=== PATIENT | female | born 1985 | race Caucasian/White ===

== ENCOUNTER 2017-10-15 21:05 | Emergency (ER) | payer OTHER ==
[2017-10-15] MEDS ORDERED: METOCLOPRAMIDE HCL INJECTION 10 MG/2 ML VIAL IVPB ONE (21:44)
[2017-10-15] MEDS ORDERED: SODIUM CHLORIDE 1,000 ML IV STA (21:44)
--- NOTE | 2017-10-15 21:44 | PDOC ---
History of Present Illness - General Stated Complaint: SYNCOPE Time Seen by Provider: 10/15/17 21:08 History Source: Patient Exam Limitations: No Limitations - History of Present Illness Initial Comments: 10/16/17 01:09 Best Contact: Pmhx: Asthma/never intubated or admitted, hypothyroid, migraine Pshx: Right thyroidectomy 2009; bilateral tubal ligation 2015 Allergies: Ketoprofen/rash, Cipro/rash 32-year-old female presents to the emergency department complaining of bitemporal 6/10 dull nonradiating intermittent migraine headache 2 days with photophobia/phonophobia but without fever, chills, nausea/vomiting, dizziness, lightheadedness, facial pains, rhinorrhea, nasal congestion, earaches, neck pain /stiffness, back pains, chest pain, shortness of breath, abdominal pains, flank pains, urinary symptoms, ext numbness or tingling sensation., Bladder or bowel dysfunction. Patient states her symptoms are very typical of her usual migraines. Patient states she did not take anything for her pain. Past History - Past Medical History Allergies/Adverse Reactions: Allergies Allergy/AdvReac Type Severity Reaction Status Date / Time ciprofloxacin [From Cipro] Allergy Verified 10/15/17 21:56 ibuprofen Allergy Verified 10/15/17 21:56 Review of Systems - Review of Systems Able to Perform ROS?: Yes Comments:: 10/16/17 01:11 CONSTITUTIONAL: Absent: fever, chills, diaphoresis, generalized weakness, malaise, loss of appetite HEENT: Absent: rhinorrhea, nasal congestion, throat pain, throat swelling, difficulty swallowing, mouth swelling, ear pain, eye pain, visual Changes CARDIOVASCULAR: Absent: chest pain, loss of consciousness, palpitations, irregular heart rate, peripheral edema RESPIRATORY: Absent: cough, shortness of breath, dyspnea with exertion, orthopnea, wheezing, stridor, hemoptysis GASTROINTESTINAL: Absent: abdominal pain, abdominal distension, nausea, vomiting, diarrhea, constipation, melena, hematochezia GENITOURINARY: Absent: dysuria, frequency, urgency, hesitancy, hematuria, flank pain, genital pain MUSCULOSKELETAL: Absent: myalgia, arthralgia, joint swelling SKIN: Absent: rash, itching, pallor HEMATOLOGIC/IMMUNOLOGIC: Absent: easy bleeding, easy bruising, lymphadenopathy, frequent infections ENDOCRINE: Absent: unexplained weight gain, unexplained weight loss, heat intolerance, cold intolerance NEUROLOGIC: +bi-temporal peace Absent: focal weakness or paresthesias, dizziness, unsteady gait, seizure, mental status changes, bladder or bowel incontinence PSYCHIATRIC: Absent: anxiety, depression, suicidal or homicidal ideation, hallucinations. Is the patient limited Syrian proficient: No *Physical Exam - Physical Exam Comments: 10/16/17 01:12 GENERAL: Well developed, well nourished. Awake and alert. No acute distress. HEENT: Normocephalic, atraumatic. PERRLA, EOMI. No conjunctival pallor. Sclera are non- icteric. Moist mucous membranes. Oropharynx is clear. NECK: Supple. Full ROM. No JVD. Carotid pulses 2+ and symmetric, without bruits. No thyromegaly. No lymphadenopathy. CARDIOVASCULAR: Regular rate and rhythm. No murmurs, rubs, or gallops. Distal pulses are 2+ and symmetric. PULMONARY: No evidence of respiratory distress. Lungs clear to auscultation bilaterally. No wheezing, rales or rhonchi. ABDOMINAL: Soft. Non-tender. Non-distended. No rebound or guarding. No organomegaly. Normoactive bowel sounds. MUSCULOSKELETAL Normal range of motion at all joints. No bony deformities or tenderness. No CVA tenderness. EXTREMITIES: No cyanosis. No clubbing. No edema. No calf tenderness. SKIN: Warm and dry. Normal capillary refill. No rashes. No jaundice. NEUROLOGICAL: Alert, awake, appropriate. Cranial nerves 2-12 intact. No deficits to light touch and temperature in face, upper extremities and lower extremities. No motor deficits in the in face, upper extremities and lower extremities. Normoreflexic in the upper and lower extremities. Normal speech. Toes are down- going bilaterally. Gait is normal without ataxia. PSYCHIATRIC: Cooperative. Good eye contact. Appropriate mood and affect. ED Treatment Course - LABORATORY CBC & Chemistry Diagram: 10/15/17 21:00 10/15/17 21:00 Progress Note - Progress Note Progress Note: 0042hrs: Patient's pain-free *DC/Admit/Observation/Transfer Diagnosis at time of Disposition: Migraine headache without aura Qualifiers: Status migrainosus presence: without status migrainosus Intractability: not intractable Qualified Code(s): G43.009 - Migraine without aura, not intractable , without status migrainosus - Discharge Dispostion Disposition: HOME Condition at time of disposition: Good Admit: No - Referrals Referrals: Eleni Valente MD [Primary Care Provider] - Gerardo Roberts MD [Staff Physician] - - Patient Instructions Printed Discharge Instructions: DI for Migraine Additional Instructions: Rest Tylenol alternating with Motrin as needed for pain Follow with the neurologist listed on your discharge Return back to the emergency department for severe/persistent or worsening symptoms - Post Discharge Activity
[2017-10-15 21:48] VITALS: BMI 29.6
[2017-10-15 22:01] LABS: BASO % 0.5 % (0-2.0); EOS % 2.5 % (0-4.5); HEMATOCRIT 39.7 % (32.4-45.2); HEMOGLOBIN 13.6 GM/dL (10.7-15.3); LYMPH % 37.8 % (8-40); MCH 31.2 pg (25.7-33.7); MCHC 34.3 g/dl (32.0-36.0); MEAN CELL VOLUME 90.8 fl (80-96); MEAN PLT VOLUME 7.7 fl (7.5-11.1); MONO % 10.5 % (3.8-10.2); NEUT % 48.7 % (42.8-82.8); PLATELET COUNT 268 K/MM3 (134-434); RBC 4.37 M/mm3 (3.60-5.2); RDW 12.4 % (11.6-15.6)
[2017-10-15] MEDS ORDERED: METOCLOPRAMIDE HCL INJECTION 10 MG/2 ML VIAL ONE (22:06)
--- NOTE | 2017-10-15 22:07 | PDOC ---
*Physical Exam - Vital Signs Last Vital Signs Temp Pulse Resp BP Pulse Ox 97.8 F 74 18 114/71 100 10/15/17 21:44 10/15/17 21:44 10/15/17 21:44 10/15/17 21:44 10/15/17 21:44 ED Treatment Course - LABORATORY CBC & Chemistry Diagram: 10/15/17 21:00 10/15/17 21:00 - ADDITIONAL ORDERS Additional order review: 10/15/17 21:00 RBC 4.37 MCV 90.8 MCHC 34.3 RDW 12.4 MPV 7.7 Neutrophils % 48.7 Lymphocytes % 37.8 Monocytes % 10.5 H Eosinophils % 2.5 Basophils % 0.5 Medical Decision Making - Medical Decision Making 10/15/17 22:07 Pt seen by the Advanced Practice Provider under my direct supervision Ancillary studies reviewed I agree with plan as outlined by the Advanced Practice Provider MINERVA Lainez *DC/Admit/Observation/Transfer - Discharge Dispostion Condition at time of disposition: Good - Referrals - Patient Instructions - Post Discharge Activity
[2017-10-15 22:28] LABS: ALBUMIN 3.6 g/dl (3.4-5.0); ANION GAP 6 (8-16); BILIRUBIN,TOTAL 0.5 mg/dL (0.2-1.0); BLOOD UREA NITROGEN 15 mg/dL (7-18); CALCIUM 8.6 mg/dL (8.5-10.1); CHLORIDE 106 mmol/L (98-107); CO2 27 mmol/L (21-32); CREATININE 0.5 mg/dL (0.55-1.02); GLUCOSE,RANDOM 104 mg/dL (74-106); POTASSIUM 4.1 mmol/L (3.5-5.1); SGOT/AST 28 U/L (15-37); SGPT/ALT 45 U/L (12-78); SODIUM 139 mmol/L (136-145); TOT PROT 7.3 g/dl (6.4-8.2)
[2017-10-15 22:29] LABS: ALK PHOS 94 U/L (45-117)
[2017-10-15] MEDS ORDERED: PROCHLORPERAZINE INJECTION 10 MG/2 ML VIAL IVPB ONE (23:31)
[2017-10-15] MEDS ORDERED: DEXAMETHASONE SOD PHOSPHATE 10 MG/1 ML VIAL IVPUSH ONE (23:44)
[2017-10-16] MEDS ORDERED: PROCHLORPERAZINE INJECTION 10 MG/2 ML VIAL ONE (00:03)
[2017-10-16] MEDS ORDERED: DEXAMETHASONE SOD PHOSPHATE 10 MG/1 ML VIAL ONE (00:03)
[2017-10-16 01:37] VITALS: BP 114/70; PULSE 82; TEMP 97.6
== END 2017-10-16 01:37 | disposition home or self-care (01) ==
LOC: JER 21:05
PROC: 3E0333Z Introduction of Anti-inflammatory into Peripheral Vein, Percutaneous Approach (ICD-10-PCS; principal; 2017-10-15)
PROC: 3E033GC Introduction of Other Therapeutic Substance into Peripheral Vein, Percutaneous Approach (ICD-10-PCS; 2017-10-15)
PROC: 3E033GC Introduction of Other Therapeutic Substance into Peripheral Vein, Percutaneous Approach (ICD-10-PCS; 2017-10-15)
DX: G43.009 Migraine without aura, not intractable, without status migrainosus (principal); E03.9 Hypothyroidism, unspecified; J45.909 Unspecified asthma, uncomplicated
CPT/HCPCS: 36415; 80053; 85025; 96374; 96375; 99281-25; J1100; J7030

== ENCOUNTER 2019-02-19 22:16 | Emergency (ER) | payer OTHER ==
[2019-02-19 22:26] VITALS: BP 122/82; PULSE 72; TEMP 98.2; BMI 34.5
[2019-02-19] MEDS ORDERED: SODIUM CHLORIDE 1,000 ML IV STA (23:21)
[2019-02-19] MEDS ORDERED: ACETAMINOPHEN 1000 MG/100 ML VIAL (NON FORMULARY) IVPB ONE (23:23)
[2019-02-19] MEDS ORDERED: morphine CARPU-JECT 2 MG/1 ML DISP.SYRIN IVPUSH ONE (23:28)
[2019-02-19] MEDS ORDERED: ACETAMINOPHEN INJECTION 100 ML IVPB ONE (23:29)
[2019-02-19] MEDS ORDERED: MORPHINE SULFATE 2 MG/ML VIAL ONE (23:30)
--- NOTE | 2019-02-20 00:02 | PDOC ---
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 Endorses episode of white, foul smelling discharge. Saw PCP last week who wrote an order for TVUS but patient did not have the time to get imaging. Presented today due to increased lower abd pain. Had b/l tubal ligation concurrent w/ 2ys prior in [place]. LMP was 5ys prior. States that her periods tend to be irregular. Engages in non-barrier intercourse with monogamous . Pain with pentration during intercourse. Has been taking methocarbomal and cyclobenzaprine for her chronic lower back spasms. Severity: severe Modifying Factors: improves with: other (slight improvement with methocarbamol) Associated Symptoms: reports: fever/chills, headaches, loss of appetite Past History - Travel Traveled outside of the country in the last 30 days: No Close contact w/someone who was outside of country & ill: No - Past Medical History Allergies/Adverse Reactions: Allergies Allergy/AdvReac Type Severity Reaction Status Date / Time ciprofloxacin [From Cipro] Allergy Verified 10/15/17 21:56 ibuprofen Allergy Verified 10/15/17 21:56 COPD: No CHF: No Thyroid Disease: Yes (hypothyroid) - Surgical History Other Surgical History: 02/20/19 00:03 csection x4 - Family Disease History Family Disease History: Other: Grandparents (prostate Ca), Father (DM), Mother ( pre-DM) - Reproductive History LMP comment: 5mo prior LMP Normal: No - Immunization History Immunization Up to Date: Yes - Suicide/Smoking/Psychosocial Hx Smoking History: Never smoked Have you smoked in the past 12 months: No Hx Alcohol Use: No Drug/Substance Use Hx: No Substance Use Type: None Hx Substance Use Treatment: No Review of Systems - Review of Systems Able to Perform ROS?: Yes Is the patient limited Yoruba proficient: Yes Constitutional: Yes: Chills, Loss of Appetite. No: Fever HEENTM: No: Blurred Vision, Double Vision Respiratory: No: Cough, Orthopnea Cardiac (ROS): Yes: Chest Pain (chest pressure) ABD/GI: Yes: Abdominal cramping (LLQ>RLQ). No: Nausea, Vomiting, Tarry Stools : Yes: Burning, Dysuria. No: Hematuria Musculoskeletal: Yes: Back Pain Integumentary: No: Erythema Neurological: Yes: Headache. No: Numbness Endocrine: No: Excessive Sweating Hematologic/Lymphatic: No: Anemia *Physical Exam - Vital Signs Last Vital Signs Temp Pulse Resp BP Pulse Ox 98.2 F 72 20 122/82 98 02/19/19 22:19 02/19/19 22:19 02/19/19 22:19 02/19/19 22:19 02/19/19 22:19 - Physical Exam General Appearance: Yes: Nourished, Appropriately Dressed, Moderate Distress. No: Cachetic HEENT: positive: EOMI, Normal Voice Neck: positive: Trachea midline. negative: Lymphadenopathy (R), Lymphadenopathy (L) Respiratory/Chest: positive: Lungs Clear. negative: Respiratory Distress, Accessory Muscle Use Cardiovascular: positive: Regular Rate, S1, S2. negative: Edema Female Pelvic Exam: positive: cervical os closed (no blood ), CMT, adnexal tenderness (LLQ pain) Musculoskeletal: negative: CVA Tenderness Extremity: positive: Normal Capillary Refill. negative: Tender, Calf Tenderness Integumentary: negative: Cyanotic Neurologic: positive: Fully Oriented, Normal Mood/Affect ED Treatment Course - Medications Given in the ED: ED Medications Discontinued Medications Generic Name Dose Route Start Last Admin Trade Name Moisesq PRN Reason Stop Dose Admin Acetaminophen 1,000 mg 02/19/19 23:23 02/19/19 23:54 Ofirmev Injection - IVPB 02/19/19 23:24 1,000 mg ONCE ONE Administration Morphine Sulfate 2 mg 02/19/19 23:28 02/19/19 23:54 Morphine Injection - IVPUSH 02/19/19 23:29 2 mg ONCE ONE Administration Medical Decision Making - Medical Decision Making 02/20/19 00:06 Lower abd pain possibly 2/2 to PID, ovarian cyst, less likely ovarian torsion( 5d pain) - fu CBC, CMP, UA - fu G&C urine, HIV - morphine + ofirmev for pain PRN - fu TVUS
[2019-02-20 00:10] LABS: BASO % 0.4 % (0-2.0); EOS % 2.3 % (0-4.5); HEMATOCRIT 41.9 % (32.4-45.2); HEMOGLOBIN 14.3 GM/dL (10.7-15.3); LYMPH % 44.3 % (8-40); MCH 31.2 pg (25.7-33.7); MCHC 34.1 g/dl (32.0-36.0); MEAN CELL VOLUME 91.5 fl (80-96); MEAN PLT VOLUME 8.1 fl (7.5-11.1); MONO % 8.3 % (3.8-10.2); NEUT % 44.7 % (42.8-82.8); PLATELET COUNT 271 K/MM3 (134-434); RBC 4.58 M/mm3 (3.60-5.2); RDW 13.2 % (11.6-15.6); WHITE BLOOD COUNT 5.9 K/mm3 (4.0-10.0)
--- NOTE | 2019-02-20 00:15 | PDOC ---
*Physical Exam - Vital Signs Last Vital Signs Temp Pulse Resp BP Pulse Ox 98.2 F 72 20 122/82 98 02/19/19 22:19 02/19/19 22:19 02/19/19 22:19 02/19/19 22:19 02/19/19 22:19 <Amna Patrick - Last Filed: 02/20/19 01:25> - Vital Signs Last Vital Signs Temp Pulse Resp BP Pulse Ox 98.2 F 72 20 122/82 98 02/19/19 22:19 02/19/19 22:19 02/19/19 22:19 02/19/19 22:19 02/19/19 22:19 <CherryJuan RamonWilmer Suekhushi - Last Filed: 02/20/19 02:17> ED Treatment Course - LABORATORY CBC & Chemistry Diagram: 02/19/19 23:50 02/19/19 23:50 - ADDITIONAL ORDERS Additional order review: Laboratory Results 02/20/19 02/20/19 02/19/19 00:20 00:20 23:50 Sodium Potassium Chloride Carbon Dioxide Anion Gap BUN Creatinine Est GFR (CKD-EPI)AfAm Est GFR (CKD-EPI)NonAf Random Glucose Calcium Total Bilirubin AST ALT Alkaline Phosphatase Total Protein Albumin TSH 2.98 Urine Color Yellow Urine Appearance Clear Urine pH 6.5 Ur Specific [place] 1.022 Urine Protein Negative Urine Glucose (UA) Negative Urine Ketones Negative Urine Blood Negative Urine Nitrite Negative Urine Bilirubin Negative Urine Urobilinogen 1.0 Ur Leukocyte Esterase Negative Urine HCG, Qual Negative 02/19/19 23:50 Sodium 140 Potassium 4.0 Chloride 107 Carbon Dioxide 25 Anion Gap 8 BUN 8.9 Creatinine 0.8 Est GFR (CKD-EPI)AfAm 113.06 Est GFR (CKD-EPI)NonAf 97.55 Random Glucose 90 Calcium 8.7 Total Bilirubin 0.8 AST 64 H ALT 124 H Alkaline Phosphatase 103 Total Protein 8.2 Albumin 4.1 TSH Urine Color Urine Appearance Urine pH Ur Specific [place] Urine Protein Urine Glucose (UA) Urine Ketones Urine Blood Urine Nitrite Urine Bilirubin Urine Urobilinogen Ur Leukocyte Esterase Urine HCG, Qual 02/19/19 23:50 RBC 4.58 MCV 91.5 MCHC 34.1 RDW 13.2 MPV 8.1 Neutrophils % 44.7 Lymphocytes % 44.3 H Monocytes % 8.3 Eosinophils % 2.3 Basophils % 0.4 - Medications Given in the ED: ED Medications Discontinued Medications Generic Name Dose Route Start Last Admin Trade Name Freq PRN Reason Stop Dose Admin Acetaminophen 1,000 mg 02/19/19 23:23 02/19/19 23:54 Ofirmev Injection - IVPB 02/19/19 23:24 1,000 mg ONCE ONE Administration Sodium Chloride 1,000 mls @ 1,000 mls/hr 02/19/19 23:21 02/19/19 23:54 Normal Saline - IV 02/20/19 00:20 1,000 mls/hr ASDIR STA Administration Morphine Sulfate 2 mg 02/19/19 23:28 02/19/19 23:54 Morphine Injection - IVPUSH 02/19/19 23:29 2 mg ONCE ONE Administration <Amna Patrick - Last Filed: 02/20/19 01:25> - LABORATORY CBC & Chemistry Diagram: 02/19/19 23:50 02/19/19 23:50 - ADDITIONAL ORDERS Additional order review: 02/19/19 23:50 RBC 4.58 MCV 91.5 MCHC 34.1 RDW 13.2 MPV 8.1 Neutrophils % 44.7 Lymphocytes % 44.3 H Monocytes % 8.3 Eosinophils % 2.3 Basophils % 0.4 - Medications Given in the ED: ED Medications Discontinued Medications Generic Name Dose Route Start Last Admin Trade Name Freq PRN Reason Stop Dose Admin Acetaminophen 1,000 mg 02/19/19 23:23 02/19/19 23:54 Ofirmev Injection - IVPB 02/19/19 23:24 1,000 mg ONCE ONE Administration Morphine Sulfate 2 mg 02/19/19 23:28 02/19/19 23:54 Morphine Injection - IVPUSH 02/19/19 23:29 2 mg ONCE ONE Administration <Yelitza Can - Last Filed: 02/20/19 02:17> Medical Decision Making - Medical Decision Making 02/20/19 00:[address] Jasso 34 y/o F presenting to the ED with lower abdominal pain for 6 days. on pelvic exam: cervical motion tenderness, left adnexal tenderness. no blood in vaginal vault and no discharge Rule out PID vs ovarian torsion Labs/Imaging cbc, cmp ua, G/C, TVUS, HIV -Given Tylenol and Morphine for pain -HIV negative -G/C Pending -Given 1g of azithromycin and 250 mg of ceftriaxone IM -D/C with follow up to gynecology and GI 02/20/19 02:05 TVUS Findings: No fibroids. Normal arterial and venous flow to right and left ovaries. No significant free fluid. 02/20/19 02:16 <Yelitza Can - Last Filed: 02/20/19 02:17> *DC/Admit/Observation/Transfer - Discharge Dispostion Decision to Admit order: No <Amna Patrick - Last Filed: 02/20/19 01:25> <Yelitza Can - Last Filed: 02/20/19 02:17> Diagnosis at time of Disposition: Sciatica, Elevated LFTs - Discharge Dispostion Disposition: HOME Condition at time of disposition: Improved - Referrals Referrals: Eliud Redmond MD [Staff Physician] - Paddy Gonzalez MD [Staff Physician] - - Patient Instructions Printed Discharge Instructions: DI for Sciatica, DI for Pelvic Pain, Liver Function Tests
[2019-02-20 00:29] LABS: ALBUMIN 4.1 g/dl (3.4-5.0); BILIRUBIN,TOTAL 0.8 mg/dL (0.2-1); BLOOD UREA NITROGEN 8.9 mg/dL (7-18); CALCIUM 8.7 mg/dL (8.5-10.1); CREATININE 0.8 mg/dL (0.55-1.3); TOT PROT 8.2 g/dl (6.4-8.2)
[2019-02-20 00:41] LABS: PH,URINE 6.5 (5.0-8.0); URINE APPEARANCE CLEAR; URINE BILIRUBIN NEGATIVE (NEGATIVE); URINE COLOR YELLOW; URINE GLUCOSE (UA) NEGATIVE (NEGATIVE); URINE KETONE NEGATIVE (NEGATIVE); URINE LEUK ESTERASE NEGATIVE (NEGATIVE); URINE NITRITE NEGATIVE (NEGATIVE); URINE PROTEIN NEGATIVE (NEGATIVE)
--- NOTE | 2019-02-20 01:25 | PDOC ---
Documentation entered by Matt Ferrari SCRIBE, acting as scribe for Amna Patrick MD. Amna Patrick MD: This documentation has been prepared by the Vega russell Daniel, SCRIBE, under my direction and personally reviewed by me in its entirety. I confirm that the documentation accurately reflects all work, treatment, procedures, and medical decision making performed by me. Attending Attestation - Resident Resident Name: RomeroGabino - ED Attending Attestation I have performed the following: I have examined & evaluated the patient, The case was reviewed & discussed with the resident, I agree w/resident's findings & plan - HPI HPI: 02/19/19 23:23 The patient is a 34 year old female with a past medical history of bilateral tubal ligation, hypothyroidism, PID, and asthma here today for evaluation of bilateral lower quadrant abdominal pain. The patient reports that she has had 6 days of lower quadrant abdominal pain (left worse than right) that radiates to her flanks. She also notes decreased PO intake. She also reports spinal pain that radiates down her right leg and some pinkish vaginal discharge. Patient notes that her periods are usually irregular but that she hasn't had a period in 5 months. Patient denies headache, lightheadedness. Denies fever, chills. Denies chest pain, shortness of breath. Denies nausea, vomiting, diarrhea. Allergies: ciprofloxacin, ibuprofen LMP: 10/04 - Physicial Exam PE: 02/19/19 23:55 GENERAL: Awake, alert, and fully oriented, in no acute distress HEAD: No signs of trauma EYES: PERRLA, EOMI, sclera anicteric, conjunctiva clear ENT: Auricles normal inspection, hearing grossly normal, nares patent, oropharynx clear without exudates. Moist mucosa NECK: Normal ROM, supple, no lymphadenopathy, JVD, or masses LUNGS: Breath sounds equal, clear to auscultation bilaterally. No wheezes, and no crackles HEART: Regular rate and rhythm, normal S1 and S2, no murmurs, rubs or gallops ABDOMEN: Soft, nontender, normoactive bowel sounds. No guarding, no rebound. No masses EXTREMITIES: Normal range of motion, no edema. No clubbing or cyanosis. No cords, erythema, or tenderness NEUROLOGICAL: Cranial nerves II through XII grossly intact. Normal speech, normal gait SKIN: Warm, Dry, normal turgor, no rashes or lesions noted. - Medical Decision Making 02/20/19 00:10 Pt has 2 types of pain; right sided sciatic pain and left adnexal pain - ongoing since Wednesday and she comes today because her was free and she was able to come in today. She has white discharge, but no vag bleeding. Pt has taken flexeril and robaxin with no relief. 02/20/19 00:17 WBC is normal/CBC normal. CHem and UA pending 02/20/19 01:24 Patient Name: CHELSI CALDERA THIS IS A PRELIMINARY REPORT FROM [facility] DATE OF SERVICE: 2019-02-20 00:18:53 IMAGES: 25 EXAM: TRANSVAGINAL ULTRASOUND US and pelvic duplex HISTORY: Left adnexal tenderness COMPARISON: None. FINDINGS: Endovaginal pelvic ultrasound:Uterus is anteverted and measures 9.0centimeters in length. The endometrium is 9millimeters in thickness which is normal. There are no fibroids. The right ovary measures 3.3centimeters in length, appears normal and demonstrates normal flow. Left ovary measures 3.6centimeters in length appears normal demonstrates normal flow. There is no significant free fluid. Pelvic duplex: There is normal arterial and venous flow in both ovaries. IMPRESSION: Normal exam 02/20/19 01:25 Pt will be treated empirically for GC, as she had CMT on exam. Home with GI follow up
[2019-02-20] MEDS ORDERED: AZITHROMYCIN 500 MG TABLET PO ONE (01:30)
[2019-02-20] MEDS ORDERED: AZITHROMYCIN 250 MG TABLET ONE (02:32)
== END 2019-02-20 02:43 | disposition home or self-care (01) ==
LOC: JER 22:16
PROC: 3E02329 Introduction of Other Anti-infective into Muscle, Percutaneous Approach (ICD-10-PCS; principal; 2019-02-19)
PROC: 3E0337Z Introduction of Electrolytic and Water Balance Substance into Peripheral Vein, Percutaneous Approach (ICD-10-PCS; 2019-02-19)
PROC: 3E033NZ Introduction of Analgesics, Hypnotics, Sedatives into Peripheral Vein, Percutaneous Approach (ICD-10-PCS; 2019-02-19)
PROC: 3E033NZ Introduction of Analgesics, Hypnotics, Sedatives into Peripheral Vein, Percutaneous Approach (ICD-10-PCS; 2019-02-19)
DX: M54.30 Sciatica, unspecified side (principal); R94.5 Abnormal results of liver function studies; R10.2 Pelvic and perineal pain; N88.8 Other specified noninflammatory disorders of cervix uteri
CPT/HCPCS: 36415; 76830-TC; 80053; 81003; 84443; 84703; 85025; 87086; 87389; 87491; 87591; 96361; 96372; 96374; 96375; 99283-25; J0131; J7030

== ENCOUNTER 2019-09-23 05:46 | Emergency (ER) | payer OTHER ==
[2019-09-23] MEDS ORDERED: ONDANSETRON 4 MG/2 ML VIAL ONE (06:19)
[2019-09-23 06:36] VITALS: TEMP 97.9; BMI 30.9
[2019-09-23] MEDS ORDERED: ACETAMINOPHEN 1000 MG/100 ML VIAL (NON FORMULARY) IVPB ONE (06:37)
[2019-09-23] MEDS ORDERED: ACETAMINOPHEN INJECTION 100 ML IVPB ONE (06:39)
[2019-09-23] MEDS ORDERED: SODIUM CHLORIDE 0.9% 500 ML INFUS.BAG IV ONE (07:54)
[2019-09-23] MEDS ORDERED: METOCLOPRAMIDE HCL INJECTION 10 MG/2 ML VIAL IVPB ONE (07:54)
[2019-09-23] MEDS ORDERED: METOCLOPRAMIDE HCL INJECTION 10 MG/2 ML VIAL ONE (08:04)
--- NOTE | 2019-09-23 08:17 | PDOC ---
History of Present Illness - General Chief Complaint: Headache Stated Complaint: HEADACHE/DIZZINESS Time Seen by Provider: 09/23/19 07:33 History Source: Patient Exam Limitations: No Limitations - History of Present Illness Initial Comments: 09/23/19 08:08 HPI: 34yo F PMH hypothyroidsm, asthma, migraine, presenting s/p headache and subsequent chemical exposure and syncope at 3AM. Patient endorses having a headache shortly after midnight consistent with an early migraine, she took 2 Excedrin and proceeded to work. At work, a coworker cleaned a poorly ventilated room with Clorox, Lysol and [employer]ul[place] the fumes of which the patient reports made her feel "intoxicated" and worsened her headache. She subsequently syncopized, remembers hearing distant voices before passing out (no head injury per coworker at bedside), and recovered with continued headache. Headache is holocranial, pressure, gradual onset with rapid worsening s/p fumes, Tylenol did not help. She has associated nausea, several episodes of small volume NBNB emesis, photophobia and says her vision "feels tired." No history of PCKD, aneurysm, no FHx aneurysms. All: Cipro, ibuprofen Meds: Per chart PMH: As above PSH: 4 C-sections, Thyroid resection Past History - Past Medical History Allergies/Adverse Reactions: Allergies Allergy/AdvReac Type Severity Reaction Status Date / Time ciprofloxacin [From Cipro] Allergy Verified 09/23/19 05:57 ibuprofen Allergy Verified 09/23/19 05:57 Asthma: Yes COPD: No CHF: No Thyroid Disease: Yes (hypothyroid) Other medical history: Migraines - Reproductive History (#): 4 Para: 4 Therapeutic (s) & number: Yes Tubal Ligation: Yes (APPROX. 3 YEARS AGO) Spontaneous : 0 - Immunization History Immunization Up to Date: Yes - Psycho Social/Smoking Cessation Hx Smoking History: Never smoked Have you smoked in the past 12 months: No Information on smoking cessation initiated: No Hx Alcohol Use: No Drug/Substance Use Hx: No Substance Use Type: None Hx Substance Use Treatment: No Review of Systems - Review of Systems Able to Perform ROS?: Yes Is the patient limited Sinhala proficient: No Constitutional: No: Chills, Diaphoresis, Fever, Weakness HEENTM: Yes: Blurred Vision. No: Eye Pain, Nose Pain, Nose Congestion, Hearing Loss Respiratory: No: Cough, Shortness of Breath, Wheezing Cardiac (ROS): Yes: Syncope. No: Chest Pain, Edema, Irregular Heart Rate, Palpitations, Chest Tightness ABD/GI: Yes: Nausea, Vomiting. No: Constipated, Diarrhea : No: Burning, Dysuria, Discharge, Frequency Musculoskeletal: No: Muscle Pain, Muscle Weakness Integumentary: No: Pruritus, Rash Neurological: Yes: See HPI, Headache. No: Numbness, Tingling, Tremors, Wea kness, Unsteady Gait Endocrine: No: Increased Thirst, Increased Urine Hematologic/Lymphatic: No: Anemia, Blood Clots, Easy Bleeding All Other Systems: Reviewed and Negative *Physical Exam - Vital Signs Last Vital Signs Temp Pulse Resp BP Pulse Ox 97.9 F 66 20 123/93 100 09/23/19 05:57 09/23/19 05:57 09/23/19 05:57 09/23/19 05:57 09/23/19 05:57 - Physical Exam 09/23/19 08:33 Vitals reviewed, AFVSS GEN: Appears stated age, NAD, uncomfortable with light. AAOx3. HEENT: NCAT, EOMI, PERRL. Sclera anicteric, non-injected. No facial asymmetry. Moist mucous membranes. Normal voice. Trachea midline. Neck supple. No stiffness or pain with flexion. CV: RRR, S1/S2, no murmurs / rubs / gallops appreciated. LUNG: CTAB, normal work of breathing. No wheezes, rales, rhonchi. No cough. Speaking full sentences. GI: Soft, NTND, +BS, no guarding, no rebound. No masses. Neg CVAT b/l. EXTREMITIES: 2+ distal pulses. No LE edema. No obvious deformities of all extre mities. SKIN: Warm, dry, no rashes appreciated, non-jaundiced. PSYCH: Normal mood and affect. Cooperative and appropriate. NEURO: CN 2-12 intact. Moving all extremities well. Normal strength and sensation to light touch. ED Treatment Course - LABORATORY CBC & Chemistry Diagram: 09/23/19 08:10 09/23/19 08:10 - Medications Given in the ED: ED Medications Discontinued Medications Generic Name Dose Route Start Last Admin Trade Name Freq PRN Reason Stop Dose Admin Acetaminophen 1,000 mg 09/23/19 06:37 09/23/19 06:45 Ofirmev Injection - IVPB 09/23/19 06:38 1,000 mg ONCE ONE Administration Medical Decision Making - Medical Decision Making 09/23/19 08:28 34yo F PMH hypothyroidsm, asthma, migraine, presenting s/p headache and subsequent chemical exposure and syncope at 3AM. History notable for headache gradual onset prior to fume exposure, no recent illness or sick contacts. Exam notable for: No ocular findings, no trauma, normal vitals without fever, no neck stiffness, no palpitations or chest pain, non-focal neuro exam. DDX: Migraine, ICH, less likely mass lesion, thromboembolism. - CBC, CMP, Cardiac profile, Coags, UPreg - CXR, EKG, NCHCT 09/23/19 10:06 - AST and ALT elevated, c/w prior visit - CBC, Cardiac, CMP, Coags, otherwise wnl - CXR within normal limits - EKG with rate 56, NSR, normal axis, QTc 457, normal morphologies 09/23/19 11:12 - NCHCT without ICH or thromboembolic findings - Patient reports considerable improvement after medication and a nap Dispo: Home Discharge - Discharge Information Problems reviewed: Yes Clinical Impression/Diagnosis: Migraine headache without aura Qualifiers: Status migrainosus presence: without status migrainosus Intractability: not intractable Qualified Code(s): G43.009 - Migraine without aura, not intractable, without status migrainosus Condition: Improved Disposition: HOME - Admission No - Follow up/Referral Referrals: [facility] [place] [facility] [place] [Provider Group] - Patient Discharge Instructions Patient Printed Discharge Instructions: DI for Migraine Additional Instructions: You were seen and evaluated for headache, you were diagnosed with a migraine headache, emergent causes were ruled out. Continue your home medication as prescribed. Follow up with your primary care doctor in the next 1-3 days. Return to the for any new or concerning symptoms. Te vieron y te evaluaron para el dolor de rubio, te diagnosticaron dolor de rubio por migraa, se descartaron causas emergentes. Contine con tatum medicamento casero segn lo prescrito. [place] un seguimiento con tatum mdico de atencin primaria en los prximos 1-3 jain. Vuelva a la para cualquier sntoma nuevo o preocupante. Print Language: MACEDONIAN - Post Discharge Activity
[2019-09-23 08:25] LABS: BASO % 0.4 % (0-2.0); EOS % 1.8 % (0-4.5); HEMATOCRIT 39.2 % (32.4-45.2); HEMOGLOBIN 13.6 GM/dL (10.7-15.3); LYMPH % 37.8 % (8-40); MCH 31.8 pg (25.7-33.7); MCHC 34.8 g/dl (32.0-36.0); MEAN CELL VOLUME 91.5 fl (80-96); MEAN PLT VOLUME 7.8 fl (7.5-11.1); MONO % 7.3 % (3.8-10.2); NEUT % 52.7 % (42.8-82.8); PLATELET COUNT 276 K/MM3 (134-434); RBC 4.28 M/mm3 (3.60-5.2); RDW 12.9 % (11.6-15.6); WHITE BLOOD COUNT 6.1 K/mm3 (4.0-10.0)
[2019-09-23 08:37] LABS: INR 0.97 (0.83-1.09); PROTHROMBIN TIME (PATIENT) 11.4 SEC (9.7-13.0)
[2019-09-23 08:44] LABS: ALBUMIN 3.9 g/dl (3.4-5.0); ALK PHOS 107 U/L (45-117); ANION GAP 6 MMOL/L (8-16); BILIRUBIN,TOTAL 0.6 mg/dL (0.2-1); BLOOD UREA NITROGEN 10.3 mg/dL (7-18); CALCIUM 8.1 mg/dL (8.5-10.1); CHLORIDE 106 mmol/L (98-107); CO2 25 mmol/L (21-32); CREATININE 0.7 mg/dL (0.55-1.3); GLUCOSE,RANDOM 97 mg/dL (74-106); POTASSIUM 4.6 mmol/L (3.5-5.1); SGOT/AST 78 U/L (15-37); SGPT/ALT 157 U/L (13-61); SODIUM 137 mmol/L (136-145); TOT PROT 7.6 g/dl (6.4-8.2)
--- NOTE | 2019-09-23 09:14 | PDOC ---
Attending Attestation - Resident Resident Name: Lino Chun - ED Attending Attestation I have performed the following: I have examined & evaluated the patient, The case was reviewed & discussed with the resident, I agree w/resident's findings & plan, Exceptions are as noted - HPI HPI: 09/23/19 09:11 34-year-old female with history of asthma, hypothyroidism, migraine headaches presents to the ER after a syncopal episode preceded by a mild migraine-like headache consistent with previous episodes of migraines. However patient endorses that headache post syncope is quite different than her baseline migraine headaches. Patient endorses that she was exposed to chemicals at work prior to the syncopal episode. - Physicial Exam PE: 09/23/19 09:12 EXAMINATION CONSTITUTIONAL: Well-appearing; well-nourished; in no apparent distress HEAD: Normocephalic; atraumatic EYES: PERRL; EOM intact ENMT: External appears normal; normal oropharynx NECK: Supple; non-tender; no cervical lymphadenopathy CARD: Normal S1, S2; no murmurs, rubs, or gallops RESP: Normal chest excursion with respiration; breath sounds clear and equal bilaterally; no wheezes, rhonchi, or rales ABD: Soft, non-distended; non-tender; no palpable organomegaly, no palpable hernias EXT: Normal ROM in all four extremities; non-tender to palpation; distal pulses intact SKIN: Warm, dry, no rash NEURO: Cranial nerves II through XII are grossly intact; motor is five 5 x 4; no pronation drift; gait is stable - Medical Decision Making 09/23/19 09:13 34-year-old female presents to the ER post syncopal episode with an onset of new more severe-like headache. Patient is nonfocal neurologically with stable vital signs. Differential diagnosis includes subarachnoid versus intracerebral hemorrhage versus migraine headache versus vasovagal syncope. Will obtain CT of head; EKG reveals no evidence of acute dysrhythmia or ischemia. Will administer IV Tylenol and Reglan for treatment of headache. Will reassess.
[2019-09-23 10:35] VITALS: BP 102/56; PULSE 60
--- NOTE | 2019-09-24 09:53 | EKG ---
Test Reason : Blood Pressure : / mmHG Vent. Rate : 056 BPM Atrial Rate : 056 BPM P-R Int : 144 ms QRS Dur : 080 ms QT Int : 474 ms P-R-T Axes : 036 -01 017 degrees QTc Int : 457 ms SINUS BRADYCARDIA OTHERWISE NORMAL ECG NO PREVIOUS ECGS AVAILABLE Confirmed by Pj Sanz MD ([id number]) on 09/24/2019 9:52:43 AM Referred By: Confirmed By:Pj Sanz MD
== END 2019-09-23 11:22 | disposition home or self-care (01) ==
LOC: JER 05:46
PROC: 3E033NZ Introduction of Analgesics, Hypnotics, Sedatives into Peripheral Vein, Percutaneous Approach (ICD-10-PCS; principal; 2019-09-23)
PROC: 3E033GC Introduction of Other Therapeutic Substance into Peripheral Vein, Percutaneous Approach (ICD-10-PCS; 2019-09-23)
PROC: 3E033GC Introduction of Other Therapeutic Substance into Peripheral Vein, Percutaneous Approach (ICD-10-PCS; 2019-09-23)
DX: G43.909 Migraine, unspecified, not intractable, without status migrainosus (principal); R55 Syncope and collapse; R42 Dizziness and giddiness; T65.891A Toxic effect of other specified substances, accidental (unintentional), initial encounter; Y92.89 Other specified places as the place of occurrence of the external cause; Z88.1 Allergy status to other antibiotic agents; Z88.6 Allergy status to analgesic agent
CPT/HCPCS: 36415; 70450-TC; 71046-TC-FY; 80053; 82550; 82553; 84484; 84703; 85025; 85610; 93005; 93010; 99285-25; J0131

== ENCOUNTER 2020-02-14 22:18 | Observation (INO) | payer OTHER ==
[2020-02-14] MEDS ORDERED: SODIUM CHLORIDE 1,000 ML IV SCH (23:00)
[2020-02-14] MEDS ORDERED: ACETAMINOPHEN 1000 MG/100 ML VIAL (NON FORMULARY) IVPB ONE (23:05)
[2020-02-14] MEDS ORDERED: METOCLOPRAMIDE HCL INJECTION 10 MG/2 ML VIAL IVPUSH ONE (23:05)
[2020-02-14] MEDS ORDERED: ACETAMINOPHEN INJECTION 100 ML IVPB ONE (23:11)
[2020-02-14] MEDS ORDERED: METOCLOPRAMIDE HCL INJECTION 10 MG/2 ML VIAL ONE (23:11)
--- NOTE | 2020-02-14 23:48 | PDOC ---
History of Present Illness - General Chief Complaint: Pain Stated Complaint: pain Time Seen by Provider: 02/14/20 22:35 History Source: Patient Exam Limitations: No Limitations - History of Present Illness Initial Comments: 02/14/20 23:45 Faina Crowder is a Ugandan-speaking, obese 35F with PMH migraines presenting with CALLAWAY and R-sided facial and body numbness/weakness. Patient was otherwise feeling well earlier today. Was arguing with her daughter at ~5:30PM today when she suddenly had a sharp, R>L headache and facial droop and numbness/weakness on the right side of her body. Has history of migraines but never this bad, and never with numbness/weakness. 2 days prior felt dizzy and fell to the ground, hit her head on the floor, denies LOC or prodromal sx, returned to normal health and asymptomatic in the intervening time to today. No significant PMH other than obesity and migraines. No medications taken. Denies any chest pain, SOB, dental issues, fever, chills, N/V, cough, abd pain, urinary sx, diarrhea. No remarkable FH, no sick contacts at home, no recent URI. Presented to [facility] ED at 22:30 today for CALLAWAY pain control. Allergy to cipro. No PSH. No meds taken. Denies alcohol/drugs/tobacco. tPA Exclusion checklist 3-4.5h - Time Elapsed Date last known well: 02/14/20 Time last known well: 17:30 Elaspsed time: 1 Day(s) and 5 Hour(s) and 53 Minutes - Thrombolytic Therapy Candidate Is patient eligible for thrombolytic therapy: No - Ineligibility reason(s) Reasons No tPA given: Outside of window - delayed arrival NIH Stroke Scale - Last Known Well Date/Time & Onset Date Last Known Well: 02/14/20 Time Last Known Well: 17:30 - Initial Evaluation Level of consciousness: Alert Ask patient the month and their age: Answers both correctly Ask patient to open & close eyes; make fist and let go: Obeys both correctly Best gaze (horizontal eye movement): Normal Visual field testing: No visual field loss Facial paresis (Show teeth/raise eyebrows/close eyes tight): Partial paralysis (total or near paralysis of lower face) Motor Function: Left Arm: Normal Motor Function: Right Arm: Normal (extends arm 90 (or 45) degrees for 10 seconds without drift Motor Function: Left Leg: Normal (extends leg 30 degrees for 5 seconds without drift) Motor Function: Right Leg: Normal (extends leg 30 degrees for 5 seconds without drift) Limb Ataxia: No ataxia Sensory(Use pinprick test arms,legs,trunk,face/side to side): Mild to moderate decrease in sensation Best language (Describe picture, name items, read sentences): No Aphasia Dysarthria (read several words): Normal articulation Extinction and Inattention: No abnormality - Total Score NIH Stroke Scale Score: 3 Past History - Medical History Allergies/Adverse Reactions: Allergies Allergy/AdvReac Type Severity Reaction Status Date / Time ciprofloxacin [From Cipro] Allergy Verified 02/14/20 22:44 ibuprofen Allergy Verified 02/14/20 22:44 Home Medications: Ambulatory Orders Levothyroxine [Synthroid -] 75 mcg PO DAILY 02/15/20 Asthma: Yes COPD: No CHF: No Thyroid Disease: Yes (hypothyroid) - Reproductive History (#): 4 Para: 4 Therapeutic (s) & number: Yes Tubal Ligation: Yes (APPROX. 3 YEARS AGO) Spontaneous : 0 - Immunization History Immunization Up to Date: Yes - Psycho-Social/Smoking History Smoking History: Never smoked Have you smoked in the past 12 months: No Information on smoking cessation initiated: No - Substance Abuse Hx (Audit-C & DAST Scrn) How often the patient has a drink containing alcohol: Never Score: In Men: 4 or > Positive; In Women: 3 or > Positive: 0 Screen Result (Pos requires Nsg. Audit-10AR): Negative In the last yr the pt used illegal drug/Rx for NonMed reason: No Score: Yes response is considered Positive: 0 Screen Result (Positive result requires Nsg. DAST-10): Negative Review of Systems - Review of Systems Able to Perform ROS?: Yes Constitutional: Yes: Weakness HEENTM: Yes: Recent change in vision. No: Eye Pain, Blurred Vision, Double Vision, Throat Pain, Mouth Pain, Dental Problems, Mouth Swelling Respiratory: No: Cough, Shortness of Breath, Wheezing, Productive cough Cardiac (ROS): Yes: Lightheadedness. No: Chest Pain, Edema, Irregular Heart Rate, Syncope, Chest Tightness ABD/GI: No: Constipated, Diarrhea, Nausea, Poor Appetite, Poor Fluid Intake, Vomiting : No: Symptoms Reported Musculoskeletal: Yes: Muscle Weakness. No: Back Pain, Neck Pain Integumentary: No: Symptoms Reported Neurological: Yes: Headache, Weakness Endocrine: No: Symptoms Reported Hematologic/Lymphatic: No: Symptoms Reported All Other Systems: Reviewed and Negative *Physical Exam - Vital Signs Last Vital Signs Temp Pulse Resp BP Pulse Ox 98.1 F 71 20 127/78 98 02/14/20 22:42 02/14/20 22:42 02/14/20 22:42 02/14/20 22:42 02/14/20 22:42 - Physical Exam General Appearance: Yes: Nourished, Appropriately Dressed, Apparent Distress, Moderate Distress, Obese, Other (appears to be in pain, clutching head) HEENT: positive: EOMI, ARIANNA, Normal Voice, Hearing Grossly Normal. negative: Normal ENT Inspection, Symmetrical (inability to move the R nasolabial fold and lip lateral commissure), Pharynx Normal (no evidence of erythema or dental issues, paralysis of the R mouth), Scleral Icterus (R), Scleral Icterus (L), Muffled/Hoarse voice, Pharyngeal Erythema, Tonsillar Exudate, Tonsillar Erythema Neck: positive: Trachea midline, Normal Thyroid, Supple. negative: Tender, Rigid, Decreased range of motion, Lymphadenopathy (R), Lymphadenopathy (L), Tender lateral, Tender midline Respiratory/Chest: positive: Lungs Clear, Normal Breath Sounds. negative: Chest Tender, Respiratory Distress, Accessory Muscle Use, Crackles, Rales, Rhonchi, Stridor, Wheezing Cardiovascular: positive: Regular Rhythm, Regular Rate Gastrointestinal/Abdominal: positive: Normal Bowel Sounds, Flat, Soft. negative: Tender, Organomegaly, Pulsatile Mass, Distended, Guarding, Hernia Musculoskeletal: positive: Normal Inspection, Decreased Range of Motion. negati ve: CVA Tenderness, CVA Tenderness (R), CVA Tenderness (L) Extremity: positive: Normal Capillary Refill, Normal Inspection, Normal Range of Motion, Pelvis Stable. negative: Tender, Pedal Edema, Swelling, Calf Tenderness Integumentary: positive: Normal Color, Dry, Warm Neurologic: positive: Fully Oriented, Alert, Normal Mood/Affect, Normal Response, Facial Droop (R side, forehead sparing), Numbness (R-sided face and RUE decreased sensation compared to L side), Sensory Deficit, Finger to Nose (normal). 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 NML intact (CN 7), Motor Strength 5/5 (R-sided global weakness 4/5 to upper and lower extremities) ED Treatment Course - LABORATORY CBC & Chemistry Diagram: 02/15/20 05:49 02/15/20 05:49 - Medications Given in the ED: ED Medications Discontinued Medications Generic Name Dose Route Start Last Admin Trade Name Harpal PRN Reason Stop Dose Admin Acetaminophen 1,000 mg 02/14/20 23:05 02/14/20 23:35 Ofirmev Injection - IVPB 02/14/20 23:06 1,000 mg ONCE ONE Administration Metoclopramide HCl 10 mg 02/14/20 23:05 02/14/20 23:35 Reglan Injection - IVPUSH 02/14/20 23:06 10 mg ONCE ONE Administration Medical Decision Making - Medical Decision Making 02/15/20 01:33 Patient has PMH obesity and migraines here for CALLAWAY with numbness/weakness in R side of body. Notable R-sided weakness and forehead-sparing facial droop to R mouth concerning for CVA, Code [place] called, CT head/c-spine/facial bones done. NIHSS = 3 for facial droop and weakness. LKN 5:30PM, 5 hours ago, outside of window for tPA. Considering c-spine fracture vs. CVA vs. complex migraine vs. ICH given symptoms and recent fall. CT head shows no acute pathology, but incidentally read as R zygomatic arch fracture. CVA labs ordered, given Reglan and Ofirmev with IVF for CALLAWAY. CT c-spine: no acute fracture CT facial bones: no fracture, concern for upper lobe ground glass infiltrates Dedicated CT facial bones does not show zygomatic arch fracture despite CT head read, less likely to have mouth fracture to be cause of facial droop. Oral bone fracture also does not explain obvious motor and sensory weakness in the R side. High risk covid-19 given ground glass in both upper lungs, but patient asymptomatic. Consider covid-related clotting disorder as possible cause of an ischemic episode. CALLAWAY improved but deficits remain in ED, possible complex migraine but will consult neurology for CVA evaluation. Labs notable for: - CBC WNL - CMP WNL - lipids elevated ECG shows NSR with HR 76, QTc 450, no GREG/D or TWI CXR bedside read unremarkable for acute pathology. Consulted Dr. Tejeda, most likely complex migraine but given deficits and facial droop can admit stroke tele for CVA evaluation and AM MRI head without contrast. Patient feels better after meds but still has facial droop and weakness. Attending discussed findings with patient in Ugandan, understands need for admission for CVA evaluation and MRI. Will admit to tele for CVA eval and AM MRI head. 02/15/20 03:10 Discussed case with admitting resident team, good for admission under Dr. Grace. Discharge - Discharge Information Problems reviewed: Yes Clinical Impression/Diagnosis: Weakness, Facial droop, Elevated LFTs Headache Qualifiers: Headache type: unspecified Headache chronicity pattern: acute headache Intractability: not intractable Qualified Code(s): R51 - Headache Condition: Guarded - Admission Yes - Follow up/Referral - Patient Discharge Instructions - Post Discharge Activity
--- NOTE | 2020-02-14 23:53 | PDOC ---
Documentation entered by Luh Pérez SCRIBE, acting as scribe for Jessica Callaway DO. Jessica Callaway, DO: This documentation has been prepared by the Elisa russell Xhesika, SCRIBE, under my direction and personally reviewed by me in its entirety. I confirm that the documentation accurately reflects all work, treatment, procedures, and medical decision making performed by me. Attending Attestation - Resident Resident Name: Faraz Barboza - ED Attending Attestation I have performed the following: I have examined & evaluated the patient, The case was reviewed & discussed with the resident, I agree w/resident's findings & plan, Exceptions are as noted - HPI HPI: 02/14/20 22:49 The patient is a 35 year old female with a past medical history of bilateral tubal ligation, hypothyroidism, PID, and asthma here today for acute onset headache, R facial droop, RUE and RLE weakness since 5:30pm. Pt states at around 5:30pm she was arguing with daughter when she developed acute onset L sided headache. Pt then went to use the bathroom, fell and hit the R side of head. Pt states she has had a headache since then and endorsed an episode of nbnb emesis. Patient denies chest pain and SOB. Denies fever, chills, nausea, diarrhea. Allergies: ciprofloxacin, ibuprofen PCP: Louise Bird - Physicial Exam PE: 02/14/20 23:02 GENERAL: Awake, alert, and fully oriented, in no acute distress HEAD: No signs of trauma NECK: Normal ROM, supple, no lymphadenopathy, JVD, or masses LUNGS: Breath sounds equal, clear to auscultation bilaterally. No wheezes, and no crackles HEART: Regular rate and rhythm, normal S1 and S2, no murmurs, rubs or gallops ABDOMEN: Soft, nontender, normoactive bowel sounds. No guarding, no rebound. No masses EXTREMITIES: Normal range of motion, no edema. No clubbing or cyanosis. No cords, erythema, or tenderness NEUROLOGICAL: Cranial nerves II through XII grossly intact. 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 5/5 LE strength. SKIN: Warm, Dry, normal turgor, no rashes lesions noted. - Medical Decision Making 02/14/20 23:48 a/p: 35yo female with hx of migraine peace with a peace tonight then a fall with R facial droop and R sided paresthesias -code [place] called -pt with R lower faical droop -pt with weakness R hand garbage worker -R facial ttp -R temporal ttp -R arm and leg paresthesias and decreased sensation -symptoms started at 530p and pt arrived in the Er 1030p -pt outside the window for tpa -sent for head ct, facial bones ct, c spine -labs ordered and sent -will monitor and reassess 02/14/20 23:[address] shows a zygomatic arch fx, but no acute bleed 02/15/20 01:23 elevated lft and elevated lipids call placed to Dr. Tejeda 02/15/20 01:35 resident discussed the case with Dr. Tejeda who requests an MRI, suspects complex migraines, but given deficits requests mri 02/15/20 01:41 c spine without fx pt updated and willing to stay for further eval pt still with R facial droop states peace improved will monitor and reassess 02/15/20 01:[address] does not show a zymgomatic arch fx, called ioc to discuss discrepancy in ct reads 02/15/20 01:[address] Abdi from [employer] who states there is no fx - it is a suture line 02/15/20 02:19 pending discussion with [facility] for admission Heart Score/ECG Review - ECG Intrepretation Comment:: 02/14/20 23:47 sinus at 76, nl axis, nl interval, no acute st/t wave findings Discharge - Discharge Information Problems reviewed: Yes Clinical Impression/Diagnosis: Weakness, Facial droop, Elevated LFTs Headache Qualifiers: Headache type: unspecified Headache chronicity pattern: acute headache Intractability: not intractable Qualified Code(s): R51 - Headache Condition: Guarded - Admission Yes - Follow up/Referral Referrals: Louise Bird DO [Primary Care Provider] - - Patient Discharge Instructions - Post Discharge Activity
[2020-02-15 00:27] LABS: BASO % 0.4 % (0-2.0); EOS % 1.6 % (0-4.5); HEMATOCRIT 43.3 % (32.4-45.2); HEMOGLOBIN 14.3 GM/dL (10.7-15.3); LYMPH % 28.8 % (8-40); MCH 31.1 pg (25.7-33.7); MCHC 33.1 g/dl (32.0-36.0); MEAN PLT VOLUME 8.3 fl (7.5-11.1); MONO % 5.9 % (3.8-10.2); NEUT % 63.3 % (42.8-82.8); PLATELET COUNT 281 K/MM3 (134-434); RBC 4.61 M/mm3 (3.60-5.2); RDW 13.5 % (11.6-15.6)
[2020-02-15 00:42] LABS: INR 0.97 (0.83-1.09); PROTHROMBIN TIME (PATIENT) 11.5 SEC (9.7-13.0)
[2020-02-15 00:45] LABS: ACTIVATED PTT 30.5 SECONDS (25.2-36.5)
[2020-02-15 01:00] LABS: ALK PHOS 92 U/L (45-117); BILIRUBIN,TOTAL 1.1 mg/dL (0.2-1); BLOOD UREA NITROGEN 7.9 mg/dL (7-18); CALCIUM 8.6 mg/dL (8.5-10.1); CHOLESTEROL 269 mg/dL (50-200); CO2 25 mmol/L (21-32); CREATININE 0.7 mg/dL (0.55-1.3); GLUCOSE,RANDOM 100 mg/dL (74-106); HDL CHOLESTEROL 47 mg/dL (40-60); LDL CHOLESTEROL (ONLY SJRH) 183 mg/dL (5-100); SGOT/AST 145 U/L (15-37); SGPT/ALT 293 U/L (13-61); TOT PROT 7.9 g/dl (6.4-8.2); TRIGLYCERIDES 232 mg/dL (0-150)
[2020-02-15 01:01] LABS: ANION GAP 6 MMOL/L (8-16); CHLORIDE 107 mmol/L (98-107); POTASSIUM 3.9 mmol/L (3.5-5.1); SODIUM 138 mmol/L (136-145)
[2020-02-15 02:42] LABS: EPI CELLS 11 /uL (0-25.1); HYALINE CASTS 1 /uL (0-3.1); PH,URINE 5.5 (5.0-8.0); URINE APPEARANCE CLEAR; URINE BACTERIA 34 /uL (0-1359); URINE BILIRUBIN NEGATIVE (NEGATIVE); URINE COLOR YELLOW; URINE GLUCOSE (UA) NEGATIVE (NEGATIVE); URINE KETONE NEGATIVE (NEGATIVE); URINE LEUK ESTERASE NEGATIVE (NEGATIVE); URINE NITRITE NEGATIVE (NEGATIVE); URINE PROTEIN NEGATIVE (NEGATIVE); URINE RBC 436 /uL (0-23.9); URINE UROBILINOGEN 0.2 mg/dL (0.2-1.0); URINE WBC 7 /uL (0-25.8)
--- NOTE | 2020-02-15 02:53 | PN ---
Teaching Attending Note Name of Resident: Stefan Taylor ATTENDING PHYSICIAN STATEMENT I saw and evaluated the patient. I reviewed the resident's note and discussed the case with the resident. I agree with the resident's findings and plan as documented. SUBJECTIVE: Patient is a 35 year old woman with a PMH of Bilateral tubal ligation, Migraine, Hypothyroidism, ?Thyroidectomy, PID and Asthma who presents with acute onset of headache, right facial droop, RUE and RLE weakness since 5:30pm. Patient states that around 5:30 pm she was arguing with daughter when she developed acute onset left sided headache. She then went to use the bathroom, fell and hit the right side of her head. States she has had a headache since then and had an episode of NBNB vomiting. Patient denies chest pain, shortness of breath, palpitations, fever, chills, nausea, diarrhea, constipation, dysuria, frequency, urgency, melena, hematochezia or hematuria. Says she noticed hemorrhoids today. Denies alcohol, tobacco or illicit drug use. No sick contacts or recent travels. Periods are irregular - only twice a year. Currently on her period. Family history of migraine in mother and grand mother; Parkinson's disease in grand father. OBJECTIVE: Alert Vital Signs Period Temp Pulse Resp BP Sys/Kelly Pulse Ox Last 24 Hr 98.1 F 71 20 127/78 98 HEENT: No Jaundice, eye redness or discharge, PERRLA, EOMI. Facial asymmetry; fat left nasolabial fold. Normocephalic, atraumatic. External ears are normal and hearing is grossly intact. No nasal discharge. Neck: Supple, nontender. No palpable adenopathy or thyromegaly. No JVD Chest: Good effort. Clear to auscultation and percussion. Heart: Regular. No S3, rub or murmur Abdomen: Not distended, soft, nontender and no HSM. No rebound or guarding. Normal bowel sounds. Ext: Peripheral pulses intact. No leg edema. Skin: Warm and dry. No petechiae, rash or ecchymosis. Neuro: Alert. Oriented x3. CN 2-12 grossly intact. Right hemiparesis and reduced sensation; gait not tested for safety reasons. Psych: Appropriate mood and affect. Good insight. Current Medications Generic Name Dose Route Start Last Admin Trade Name Freq PRN Reason Stop Dose Admin Sodium Chloride 1,000 mls @ 42 mls/hr 02/14/20 23:00 02/14/20 23:34 Normal Saline - IV 42 mls/hr ASDIR JUAN Administration Abnormal Lab Results 02/14/20 02/15/20 23:00 02:16 Anion Gap 6 L Total Bilirubin 1.1 H AST 145 H ALT 293 H Triglycerides 232 H Cholesterol 269 H Total LDL Cholesterol 183 H Urine Blood 3+ H Home Medications Medication Instructions Recorded Levothyroxine [Synthroid -] 75 mcg PO DAILY 02/15/20 ASSESSMENT AND PLAN: 1. Fall/Complex migraine?Rule out CVA - NIHSS score in the ER was 3. Patient was outside the window for tPA. No acute intracranial abnormality on head CT. Preli minary report of CT C-spine and facial bone CT didnot reveal any acute abnormality. No acute abnormality on CXR. ER staff discussed case with the Neurologist who thinks she has complex migraine, and recommended a brain MRI. Hematuria is likely due to her menstrual period. Viral testing for COVID-19 ordered and patient placed on airborne, droplet and contact isolation. Consult Surgery for hemorrhoids. EKG shows NSR at 76/minute, LAE and QTc [address]-T wave changes. Initial troponin is negative. Will admit to telemetry, do neurochecks, implement fall/aspiration/seizure precautions, get ECHO, brain MRI, TSH, RUQ sonogram, carotid doppler, hepatitis serology, trend LFTs, do speech and swallow evaluation, treat with Aspirin and lipid lowering agent that is not hepatotoxic once LFTs begin to improve (Pravastatin). Consult PT and treat migraine with Verapamil (if headache persists) and Topamax. Will continue comprehensive care for all of patients comorbid conditions. 2. Obesity Counseled on the risks associated with obesity. Will provide patient all the necessary assistance, counseling and positive reinforcement to facilitate weight loss. Consult audio production manager. 3. DVT prophylaxis - Lovenox 40 mg SQ q 24 hours. 4. Advance directives - Full code
--- NOTE | 2020-02-15 04:51 | HP ---
HISTORY OF PRESENT ILLNESS: This is a 35 year old brazilian speaking belgian woman with a PMHx of Hypothyroidism (on synthroid), GERD, and Asthma who presents with acute onset of rt sided headache, accompanied by a right sided facial droop which is chronic, and an acute RUE and RLE weakness since 5:30pm. Patient states that around 5:30 pm she was talking with her daughter when she developed acute onset right sided headache. She then went to use the bathroom, fell and hit the right side of her head. States she has had a headache since then and had an episode of NBNB vomiting. Admits it was associated with photophobia, slight dizziness, and tinnitus, and flashing lights. States she has been stressed out lately and has not been sleeping much in the past couple days. 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 Denies chance of being . Patient denies chest pain, shortness of breath, palpitations, fever, chills, nausea, diarrhea, constipation, dysuria, frequency, urgency, melena, hematochezia or hematuria. No sick contacts or recent travels. Family history is unremarkable. ER course was notable for: (1)UA 3+ blood and rbc's (2)EKG- nsr 76 bpm, qtc 450, NIHSS of 3 in ER, pt out of tPA window even if patient was thought to be having CVA (3)No acute intracranial abnormality on head CT. Preliminary report of CT C- spine and facial bone CT didnot reveal any acute abnormality. No acute abnormality on CXR. ER staff discussed case with the Neurologist who thinks she has complex migraine, and recommended a brain MRI. PAST SURGICAL HISTORY: partial thyroidectomy and Social History: Smoking:denies Alcohol:denies Drugs: denies Allergies ciprofloxacin [From Cipro] Allergy (Verified 02/14/20 22:44) ibuprofen Allergy (Verified 02/14/20 22:44) HOME MEDICATIONS: Home Medications Medication Instructions Recorded Levothyroxine [Synthroid -] 75 mcg PO DAILY 02/15/20 REVIEW OF SYSTEMS negative except above PHYSICAL EXAMINATION Vital Signs - 24 hr 02/14/20 22:42 Temperature 98.1 F Pulse Rate 71 Respiratory 20 Rate Blood Pressure 127/78 O2 Sat by Pulse 98 Oximetry (%) GENERAL: Awake, tired, and fully oriented, in no acute distress. HEAD: Normal with no signs of trauma. Facial droop slightly, decreased sensation on right side, uneven smile favoring the left side, unable to close eye on right fully tightly EYES: Pupils equal, round and reactive to light, extraocular movements intact, sclera anicteric, conjunctiva clear. No lid lag. EARS, NOSE, THROAT: Ears normal, nares patent, oropharynx clear without exudates. Moist mucous membranes. LUNGS: Breath sounds equal, clear to auscultation bilaterally. No wheezes, and no crackles. No accessory muscle use. HEART: Regular rate and rhythm, normal S1 and S2 without murmur, rub or gallop. ABDOMEN: Soft, slightly tender to palpation in Rt epigastrium, not distended. LOWER EXTREMITIES: 2+ pulses, warm, well-perfused. No peripheral edema. NEUROLOGICAL: Cranial nerves II-XII intact. sensation and motor weakness 3/5 on rt upper and lower extremities, states she can walk but will not test gait as increased fall risk PSYCHIATRIC: Cooperative. Good eye contact. Appropriate mood and affect. Laboratory Results - last 24 hr 02/14/20 02/14/20 02/14/20 23:00 23:00 23:00 WBC 7.0 RBC 4.61 Hgb 14.3 Hct 43.3 MCV 94.0 MCH 31.1 MCHC 33.1 RDW 13.5 Plt Count 281 MPV 8.3 Absolute Neuts (auto) 4.4 Neutrophils % 63.3 D Lymphocytes % 28.8 D Monocytes % 5.9 Eosinophils % 1.6 Basophils % 0.4 Nucleated RBC % 0 PT with INR 11.50 INR 0.97 PTT (Actin FS) 30.5 Sodium Potassium Chloride Carbon Dioxide Anion Gap BUN Creatinine Est GFR (CKD-EPI)AfAm Est GFR (CKD-EPI)NonAf Random Glucose Calcium Total Bilirubin AST ALT Alkaline Phosphatase Creatine Kinase Creatine Kinase Index CK-MB (CK-2) Troponin I Total Protein Albumin Triglycerides Cholesterol Total LDL Cholesterol HDL Cholesterol Serum , Qual Negative Urine Color Urine Appearance Urine pH Ur Specific [place] Urine Protein Urine Glucose (UA) Urine Ketones Urine Blood Urine Nitrite Urine Bilirubin Urine Urobilinogen Ur Leukocyte Esterase Urine WBC (Auto) Urine RBC (Auto) Urine Casts (Auto) U Epithel Cells (Auto) Urine Bacteria (Auto) Urine HCG, Qual Blood Type Antibody Screen 02/14/20 02/14/20 02/15/20 23:00 23:00 02:16 WBC RBC Hgb Hct MCV MCH MCHC RDW Plt Count MPV Absolute Neuts (auto) Neutrophils % Lymphocytes % Monocytes % Eosinophils % Basophils % Nucleated RBC % PT with INR INR PTT (Actin FS) Sodium 138 Potassium 3.9 Chloride 107 Carbon Dioxide 25 Anion Gap 6 L BUN 7.9 Creatinine 0.7 Est GFR (CKD-EPI)AfAm 131.94 Est GFR (CKD-EPI)NonAf 113.84 Random Glucose 100 Calcium 8.6 Total Bilirubin 1.1 H AST 145 H ALT 293 H Alkaline Phosphatase 92 Creatine Kinase 188 Creatine Kinase Index 0.5 CK-MB (CK-2) 1.0 Troponin I < 0.02 Total Protein 7.9 Albumin 4.0 Triglycerides 232 H Cholesterol 269 H Total LDL Cholesterol 183 H HDL Cholesterol 47 Serum , Qual Urine Color Urine Appearance Urine pH Ur Specific [place] Urine Protein Urine Glucose (UA) Urine Ketones Urine Blood Urine Nitrite Urine Bilirubin Urine Urobilinogen Ur Leukocyte Esterase Urine WBC (Auto) Urine RBC (Auto) Urine Casts (Auto) U Epithel Cells (Auto) Urine Bacteria (Auto) Urine HCG, Qual Negative Blood Type O POSITIVE Antibody Screen Negative 02/15/20 02:16 WBC RBC Hgb Hct MCV MCH MCHC RDW Plt Count MPV Absolute Neuts (auto) Neutrophils % Lymphocytes % Monocytes % Eosinophils % Basophils % Nucleated RBC % PT with INR INR PTT (Actin FS) Sodium Potassium Chloride Carbon Dioxide Anion Gap BUN Creatinine Est GFR (CKD-EPI)AfAm Est GFR (CKD-EPI)NonAf Random Glucose Calcium Total Bilirubin AST ALT Alkaline Phosphatase Creatine Kinase Creatine Kinase Index CK-MB (CK-2) Troponin I Total Protein Albumin Triglycerides Cholesterol Total LDL Cholesterol HDL Cholesterol Serum , Qual Urine Color Yellow Urine Appearance Clear Urine pH 5.5 Ur Specific [place] 1.034 Urine Protein Negative Urine Glucose (UA) Negative Urine Ketones Negative Urine Blood 3+ H Urine Nitrite Negative Urine Bilirubin Negative Urine Urobilinogen 0.2 Ur Leukocyte Esterase Negative Urine WBC (Auto) 7 Urine RBC (Auto) 436 Urine Casts (Auto) 1 U Epithel Cells (Auto) 11 Urine Bacteria (Auto) 34 Urine HCG, Qual Blood Type Antibody Screen ASSESSMENT/PLAN: This is a 35 year old brazilian speaking belgian woman with a PMHx of Hypothyroidism (on synthroid), GERD, and Asthma who presents with acute onset of rt sided headache, accompanied by a right sided facial droop which is chronic, and an acute RUE and RLE weakness since 5:30pm. #Mechanical Fall likely 2/2 Hemiplegic migraine/Rule out CVA - NIHSS score in the ER was 3 on my exam it was a 2. - Patient was outside the window for tPA. - No acute intracranial abnormality on head CT. Preliminary report of CT C-spine and facial bone CT didnot reveal any acute abnormality. - ER staff discussed case with the Neurologist (Dr. Tejeda) who thinks she has a complex migraine and recommended a brain MRI in AM - Viral testing for COVID-19 ordered and patient placed on airborne, droplet and contact isolation. - will start ASA 81 and would recommend high dose statin except pt has elevated LFT's, will continue to trend them - echo/carotid doppler, speech and swallow, fall/aspiration/seizure precautions - TSH, A1C, lipid panel showing elevated TG'S, LDL, and cholesterol - EKG shows NSR at 76/minute and QTc [address]-T wave changes. Initial troponin is negative. - will monitor on tele/stroke floor, do neurochecks q4h's. - speech and swallow eval, will keep NPO until eval is complete. - consult PT for weakness - will consider using verapamil 120 daily, and avoid triptans and other sympathetic acting drugs as it is contradicted in migraine with hemiplegia. 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 Advance directives - Full code Visit type - Emergency Visit Emergency Visit: Yes ED Registration Date: 02/15/20 Care time: The patient presented to the Emergency Department on the above date and was hospitalized for further evaluation of their emergent condition. - New Patient This patient is new to me today: Yes Date on this admission: 02/20/20 - Critical Care Critical Care patient: No ATTENDING PHYSICIAN STATEMENT I saw and evaluated the patient. I reviewed the resident's note and discussed the case with the resident. I agree with the resident's findings and plan as documented. SUBJECTIVE: OBJECTIVE: ASSESSMENT AND PLAN:
[2020-02-15 06:17] LABS: BASO % 0.4 % (0-2.0); EOS % 2.2 % (0-4.5); HEMATOCRIT 39.4 % (32.4-45.2); LYMPH % 45.7 % (8-40); MCH 30.7 pg (25.7-33.7); MCHC 32.9 g/dl (32.0-36.0); MEAN CELL VOLUME 93.4 fl (80-96); MEAN PLT VOLUME 7.8 fl (7.5-11.1); MONO % 5.7 % (3.8-10.2); PLATELET COUNT 275 K/MM3 (134-434); RBC 4.22 M/mm3 (3.60-5.2); RDW 13.3 % (11.6-15.6); WHITE BLOOD COUNT 6.5 K/mm3 (4.0-10.0)
[2020-02-15 07:13] LABS: ALBUMIN 3.6 g/dl (3.4-5.0); BILIRUBIN,TOTAL 1.1 mg/dL (0.2-1); BLOOD UREA NITROGEN 5.6 mg/dL (7-18); CALCIUM 7.8 mg/dL (8.5-10.1); CREATININE 0.6 mg/dL (0.55-1.3); MAGNESIUM 2.1 mg/dL (1.8-2.4); PHOSPHOROUS 3.4 mg/dL (2.5-4.9); POTASSIUM 3.7 mmol/L (3.5-5.1); TOT PROT 6.9 g/dl (6.4-8.2)
--- NOTE | 2020-02-15 11:27 | EKG ---
Test Reason : Blood Pressure : / mmHG Vent. Rate : 076 BPM Atrial Rate : 076 BPM P-R Int : 134 ms QRS Dur : 072 ms QT Int : 400 ms P-R-T Axes : 034 -07 016 degrees QTc Int : 450 ms NORMAL SINUS RHYTHM POSSIBLE LEFT ATRIAL ENLARGEMENT BORDERLINE ECG WHEN COMPARED WITH ECG OF 23-SEP-2019 08:38, NO SIGNIFICANT CHANGE WAS FOUND Confirmed by EARNESTINE ORTIZ MD ([id number]) on 02/15/2020 11:27:30 AM Referred By: Confirmed By:EARNESTINE ORTIZ MD
--- NOTE | 2020-02-15 12:06 | ECHO ---
Name: WERNER CHARLINE GAGNON Exam:Adult Echocardiogram Study Date: 02/15/2020 08:32 AM Age: 35 yrs Reason For Study: LV Function Height: 64 in Weight: 180 lb BSA: 1.9 m2 MMode/2D Measurements & Calculations IVSd: 1.0 cm Ao root diam: 2.8 cm LVIDd: 4.3 cm LA dimension: 3.5 cm LVIDs: 2.6 cm ACS: 2.0 cm LVPWd: 0.76 cm LVPWs: 0.89 cm EDV(Teich): 85.2 ml ESV(Teich): 25.6 ml LVOT diam: 2.1 cm LAV (MOD-bp): 34.0 ml TAPSE: 1.6 cm RV S Stevie: 11.3 cm/sec Doppler Measurements & Calculations MV V2 max: 112.7 cm/sec MV E max stevie: 103.7 cm/sec MV max P.1 mmHg MV A max stevie: 48.9 cm/sec MV V2 mean: 60.7 cm/sec MV E/A: 2.1 MV mean P.8 mmHg MV dec time: 0.17 sec MV V2 VTI: 30.8 cm Ao V2 max: 120.8 cm/sec LV V1 max P.7 mmHg Ao max P.8 mmHg LV V1 max: 96.7 cm/sec BROOKE(V,D): 2.8 cm2 TR max stevie: 187.3 cm/sec PA V2 max: 89.6 cm/sec TR max P.2 mmHg PA max P.2 mmHg Med Peak E' Stevie: 10.6 cm/sec Med E/e': 9.7 Lat Peak E' Stevie: 11.8 cm/sec Lat E/e': 8.8 Procedure A complete two-dimensional transthoracic echocardiogram was performed (2D, M-mode, Doppler and color flow Doppler). Left Ventricle The left ventricular size, thickness and function are normal. Ejection Fraction = 60-65%. The left ve ntricular wall motion is normal. Right Ventricle The right ventricle is normal in size and function. Atria Normal left and right atrial size and function. Mitral Valve There is no mitral regurgitation noted. Tricuspid Valve There is trace tricuspid regurgitation. Right ventricular systolic pressure is normal. Aortic Valve The aortic valve is trileaflet. No hemodynamically significant valvular aortic stenosis. No aortic regurgitation is present. Pulmonic Valve There is no pulmonic valvular regurgitation. Great Vessels The aortic root is normal size. Pericardium/Pleura There is no pericardial effusion. Interpretation Summary The left ventricular size, thickness and function are normal The right ventricle is normal in size and function. There is trace tricuspid regurgitation. MD Padilla iNx 02/15/2020 12:05 PM
[2020-02-15] MEDS ORDERED: ASPIRIN 81 MG CHEWABLE TABLETS ONE (12:15)
[2020-02-15] MEDS ORDERED: LEVOTHYROXINE NA 25 MCG TABLET (FP) ONE (12:16)
[2020-02-15] MEDS ORDERED: TOPIRAMATE 25 MG TABLET ONE (12:16)
[2020-02-15] MEDS ORDERED: ENOXAPARIN NA (PORCINE) 40 MG/0.4 ML DISP.SYRIN SQ ONE (12:16)
[2020-02-15] MEDS: TOPIRAMATE 25 MG TABLET PO SCH (12:22)
[2020-02-15] MEDS: ENOXAPARIN NA (PORCINE) 40 MG/0.4 ML DISP.SYRIN SQ SCH (12:22)
[2020-02-15] MEDS: ASPIRIN 81 MG CHEWABLE TABLETS PO SCH (12:22)
[2020-02-15] MEDS: LEVOTHYROXINE NA 75 MCG TABLET (FP) PO SCH (12:22)
[2020-02-15] MEDS: VERAPAMIL HCL 120 MG CAP SUSTAINED RELEASE PO SCH (12:53)
[2020-02-15] MEDS: OMEGA-3 ACID ETHYL ESTERS (FATTY-ACIDS) 1 GM CAPSULE (FP) PO SCH ×2 (12:53→23:31)
--- NOTE | 2020-02-15 14:14 | CONSULT ---
Admitting History and Physical - Past Medical History ...LMP: 09/18/18 - Smoking History Smoking history: Never smoked Have you smoked in the past 12 months: No - Alcohol/Substance Use Hx Alcohol Use: No History - Admission Reason For Visit: HEADACHE,FACIAL DROOP,WEAKNESS Speech Evaluation - Communication Primary Language: HUNGARIAN Secondary Language: KYRGYZ Communication: Yes: Within Normal Limits (WFL in Somali), Simple Responses (In Samoan), Language Barrier Oral Expression Ability: Yes: No Impairment - Speech Production Apraxia: No Able to Make Needs Known: Yes: Mildly Impaired Intelligibility: Yes: WNL - Speech Characteristics Voice Loudness: Normal Voice Pitch: Yes: Normal Voice Phonatory-based Quality: Yes: Normal Speech Pattern: Normal Nasal Resonance: Normal Articulation: Yes: Precise Rate of Speech: Intact Voice Comment: Vocal quality is within normal limits at bedside - Language/Auditory Comprehension Follows: Yes: 1 Stage Simple Commands (WFL), 2 Stage Simple Commands (WFL) Observation: Able to respond to yes/no queries: Yes, Yes/No Confusion: No, Comprehends Conversational Speech: Yes (Mostly in Somali ), Benefits from Slow Speech: No, Benefits from Repetiton: No, Benefits from Increased Volume of Speech: No - Language/Verbal Expression Able to Respond to Simple Queries: Yes: WNL Able to Communicate Wants and Needs: Yes: WNL (in Somali) Functional Communication Status: Yes: WNL Aware of Errors: Yes Attempts to Correct Errors: Yes Use of Gestures: No Written Expression: not examined Oral Expression: WFL in Somali. 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 Memory: Yes: WNL Short Term Memory: Yes: WNL - Swallow Evaluation/Bedside Assessment Current Nutritional Intake: NPO (pending swallow eval) Oral Secretions: Yes: WFL Tracheostomy Present: No Patient on Ventilator: No Dentition: Yes: Adequate Facial Symmetry at Rest: Facial Droop Right (mild) Facial Symmetry on Retraction: Facial Droop Right (Mild weakness) Facial Movement: Controlled Sensation: Normal Facial Comment: mild right sided weakness but WFL for speech and swallowing Jaw Position: Closed at Rest Against Resistance Opening: Normal Against Resistance Closing: Normal Pucker Lips: Normal Smile: Normal Lips, Comment: WFL for speech and swallowing purposes Lingual Speed of Movement: Normal Lingual Movement Strgth Against Opposition: Normal Lingual Movement Characteristics: Normal Lingual Comment: WFL for speech and swallowing purposes Soft Palate Description: Normal Color Hard Palate Description: Normal Color Gag Reflex: Strong Bite Reflex: Present Velopharyngeal Movement: Normal Laryngeal Elevation: WFL Laryngeal Movement: Able to Palpate Needs Assistance: No Rate of Intake: WFL Bolus Size: WFL Labial Seal: WFL Chewing: WFL Oral Prep Time: WFL A-P Transit: WFL Timing of Swallow: WFL Coughing/Throat Clear: No Change in Voice: No Other Findings/Remarks: 35 yo female seen in ER at bedside for swallow eval to r/o dysphagia. Pt is verbal (fluent in Somali), A&Ox3, cooperative. CC: headache, fall and hit right side of head. PMHX: hypothyroidism, Asthma, GERD. Pt presented to ER with mild right side weakness of face and UE (gradually improving). Pt does report a little numbness on the right side of face and arm. Speech and articulation are WNL. Vocal quality is WNL. Pt given po trials of pureed and regular solids without assistance revealed good acceptance, adequate mastication, bolus formation and transport. Pharyngeal swallows appears timely (1-2 seconds) with no s/s of aspiration-like behaviors at this time. Thin liquid trial via cup and straw without assistance were unremarkable for dysphagia and/or aspiration at this time. Recommendations - Speech Evaluation, Impression/Plan Impression: Pt is able to tolerate purees, soft and regular solids with thin liquids without s/s of aspiration-like behaviors at this time. Pt is fluent in Somali and receptive / expressive language are WFL. 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 Short Term Goals: tolerate purees , regular solids with thin liquids without s/s of aspiration - Dysphagia Impressions/Plan Dysphagia Impressions: Minimal Impairment, Risk of Aspiration (secondary to mild right sided weakness) Dysphagia Treatment Plan: Trial Feedings, Safe Rate, Elevate HOB during feed, OOB for meals Dysphagia Evaluation Summary: Trial regular solids with thin liquids as tolerated. Observed standard aspiration precautions. Medication can be given whole. Monitor right side weakness. Results given to ER staff and PCP via chart.
--- NOTE | 2020-02-15 18:44 | PN ---
Physical Exam: SUBJECTIVE: Patient seen and examined at bedside. OBJECTIVE: Vital Signs Temperature 98.5 F 02/15/20 12:53 Pulse Rate 72 02/15/20 12:53 Respiratory Rate 19 02/15/20 12:53 Blood Pressure 132/68 02/15/20 12:53 O2 Sat by Pulse Oximetry (%) 99 02/15/20 12:53 GENERAL: The patient is awake, alert, and fully oriented, in no acute distress. NECK: full range of motion, supple. LUNGS: Breath sounds equal, clear to auscultation bilaterally HEART: Regular rate and rhythm, S1, S2 ABDOMEN: Soft, nontender, nondistended, normoactive bowel sounds EXTREMITIES: 2+ pulses, warm, well-perfused, no edema. NEUROLOGICAL: Right facial droop, the rest of Cranial nerves II-XII intact. sensation decreased and motor weakness 4/5 on RUE/RLE PSYCH: Normal mood, normal affect. SKIN: Warm, dry, normal turgor, no rashes or lesions noted Laboratory Results - last 24 hr 02/14/20 02/14/20 02/14/20 23:00 23:00 23:00 WBC 7.0 RBC 4.61 Hgb 14.3 Hct 43.3 MCV 94.0 MCH 31.1 MCHC 33.1 RDW 13.5 Plt Count 281 MPV 8.3 Absolute Neuts (auto) 4.4 Neutrophils % 63.3 D Lymphocytes % 28.8 D Monocytes % 5.9 Eosinophils % 1.6 Basophils % 0.4 Nucleated RBC % 0 PT with INR 11.50 INR 0.97 PTT (Actin FS) 30.5 Sodium Potassium Chloride Carbon Dioxide Anion Gap BUN Creatinine Est GFR (CKD-EPI)AfAm Est GFR (CKD-EPI)NonAf Random Glucose Hemoglobin A1c % Calcium Phosphorus Magnesium Total Bilirubin AST ALT Alkaline Phosphatase Creatine Kinase Creatine Kinase Index CK-MB (CK-2) Troponin I Total Protein Albumin Triglycerides Cholesterol Total LDL Cholesterol HDL Cholesterol TSH Free T4 Serum , Qual Negative Urine Color Urine Appearance Urine pH Ur Specific Shorter Urine Protein Urine Glucose (UA) Urine Ketones Urine Blood Urine Nitrite Urine Bilirubin Urine Urobilinogen Ur Leukocyte Esterase Urine WBC (Auto) Urine RBC (Auto) Urine Casts (Auto) U Epithel Cells (Auto) Urine Bacteria (Auto) Urine HCG, Qual Blood Type Antibody Screen 02/14/20 02/14/20 02/15/20 23:00 23:00 02:16 WBC RBC Hgb Hct MCV MCH MCHC RDW Plt Count MPV Absolute Neuts (auto) Neutrophils % Lymphocytes % Monocytes % Eosinophils % Basophils % Nucleated RBC % PT with INR INR PTT (Actin FS) Sodium 138 Potassium 3.9 Chloride 107 Carbon Dioxide 25 Anion Gap 6 L BUN 7.9 Creatinine 0.7 Est GFR (CKD-EPI)AfAm 131.94 Est GFR (CKD-EPI)NonAf 113.84 Random Glucose 100 Hemoglobin A1c % Calcium 8.6 Phosphorus Magnesium Total Bilirubin 1.1 H AST 145 H ALT 293 H Alkaline Phosphatase 92 Creatine Kinase 188 Creatine Kinase Index 0.5 CK-MB (CK-2) 1.0 Troponin I < 0.02 Total Protein 7.9 Albumin 4.0 Triglycerides 232 H Cholesterol 269 H Total LDL Cholesterol 183 H HDL Cholesterol 47 TSH Free T4 Serum , Qual Urine Color Urine Appearance Urine pH Ur Specific Shorter Urine Protein Urine Glucose (UA) Urine Ketones Urine Blood Urine Nitrite Urine Bilirubin Urine Urobilinogen Ur Leukocyte Esterase Urine WBC (Auto) Urine RBC (Auto) Urine Casts (Auto) U Epithel Cells (Auto) Urine Bacteria (Auto) Urine HCG, Qual Negative Blood Type O POSITIVE Antibody Screen Negative 02/15/20 02/15/20 02/15/20 02:16 05:49 05:49 WBC 6.5 RBC 4.22 Hgb 13.0 Hct 39.4 MCV 93.4 MCH 30.7 MCHC 32.9 RDW 13.3 Plt Count 275 MPV 7.8 Absolute Neuts (auto) 3.0 Neutrophils % 46.0 D Lymphocytes % 45.7 H D Monocytes % 5.7 Eosinophils % 2.2 Basophils % 0.4 Nucleated RBC % 0 PT with INR INR PTT (Actin FS) Sodium 140 Potassium 3.7 Chloride 106 Carbon Dioxide 21 Anion Gap 12 BUN 5.6 L Creatinine 0.6 Est GFR (CKD-EPI)AfAm 138.80 Est GFR (CKD-EPI)NonAf 119.76 Random Glucose 94 Hemoglobin A1c % Calcium 7.8 L Phosphorus 3.4 Magnesium 2.1 Total Bilirubin 1.1 H AST 120 H ALT 252 H Alkaline Phosphatase 78 Creatine Kinase Creatine Kinase Index CK-MB (CK-2) Troponin I Total Protein 6.9 Albumin 3.6 Triglycerides Cholesterol Total LDL Cholesterol HDL Cholesterol TSH 5.73 H Free T4 0.93 Serum , Qual Urine Color Yellow Urine Appearance Clear Urine pH 5.5 Ur Specific Shorter 1.034 Urine Protein Negative Urine Glucose (UA) Negative Urine Ketones Negative Urine Blood 3+ H Urine Nitrite Negative Urine Bilirubin Negative Urine Urobilinogen 0.2 Ur Leukocyte Esterase Negative Urine WBC (Auto) 7 Urine RBC (Auto) 436 Urine Casts (Auto) 1 U Epithel Cells (Auto) 11 Urine Bacteria (Auto) 34 Urine HCG, Qual Blood Type Antibody Screen 02/15/20 05:49 WBC RBC Hgb Hct MCV MCH MCHC RDW Plt Count MPV Absolute Neuts (auto) Neutrophils % Lymphocytes % Monocytes % Eosinophils % Basophils % Nucleated RBC % PT with INR INR PTT (Actin FS) Sodium Potassium Chloride Carbon Dioxide Anion Gap BUN Creatinine Est GFR (CKD-EPI)AfAm Est GFR (CKD-EPI)NonAf Random Glucose Hemoglobin A1c % 5.8 Calcium Phosphorus Magnesium Total Bilirubin AST ALT Alkaline Phosphatase Creatine Kinase Creatine Kinase Index CK-MB (CK-2) Troponin I Total Protein Albumin Triglycerides Cholesterol Total LDL Cholesterol HDL Cholesterol TSH Free T4 Serum , Qual Urine Color Urine Appearance Urine pH Ur Specific Shorter Urine Protein Urine Glucose (UA) Urine Ketones Urine Blood Urine Nitrite Urine Bilirubin Urine Urobilinogen Ur Leukocyte Esterase Urine WBC (Auto) Urine RBC (Auto) Urine Casts (Auto) U Epithel Cells (Auto) Urine Bacteria (Auto) Urine HCG, Qual Blood Type Antibody Screen Active Medications Generic Name Dose Route Start Last Admin Trade Name Moisesq PRN Reason Stop Dose Admin Aspirin 81 mg 02/15/20 10:00 02/15/20 12:22 Asa - PO 81 mg DAILY JUAN Administration Enoxaparin Sodium 40 mg 02/15/20 10:00 02/15/20 12:22 Lovenox - SQ 40 mg DAILY JUAN Administration Sodium Chloride 1,000 mls @ 42 mls/hr 02/14/20 23:00 02/14/20 23:34 Normal Saline - IV 42 mls/hr ASDIR JUAN Administration Levothyroxine Sodium 75 mcg 02/15/20 07:00 02/15/20 12:22 Synthroid - PO 75 mcg DAILY@0700 JUAN Administration [id number] Ethyl Esters 2 gm 02/15/20 10:00 02/15/20 12:53 Lovaza - PO 2 gm BID JUAN Administration Topiramate 25 mg 02/15/20 10:00 02/15/20 12:22 Topamax - PO 25 mg DAILY JUAN Administration Verapamil HCl 120 mg 02/15/20 10:00 02/15/20 12:53 Verelan Sr Capsule PO 120 mg DAILY JUAN Administration ASSESSMENT/PLAN: Patient is a 35 year old welsh speaking guyanese woman with a PMHx of Hypothyroidism (on synthroid), GERD, and Asthma who presents with acute onset of rt sided headache, accompanied by a right sided facial droop which is chronic, and an acute RUE and RLE weakness for 1 day. #R sided weakness/headache, possibly 2/2 Complex migraine, r/o CVA - No acute intracranial abnormality on head CT. - CT C-spine and facial bone CT did not reveal any acute abnormality. - Echo unremarkable - Carotid doppler no evidence of stenosis or hemodynamic instability - will start ASA 81 , holding statins in setting of elevated LFTs - Speech and swallow eval appreciated. - Trial regular solids with thin liquids as tolerated. - fall/aspiration/seizure precautions - lipid panel showing elevated TG'S, LDL, and cholesterol - A1c 5.7 - will monitor on tele/stroke floor - do neurochecks q4h's. - consult PT for weakness #Hypothyroidism - synthroid 75mcg daily as per her home dose per patient #Transaminitis - likely 2/2 NAFLD - abdominal sono fatty infiltration of liver - hepatitis serology pending #Microscopic hematuria - UA with blood and rbc's likely 2/2 to being on her period #Asthma - not in an acute exacerbation at this time #FEN - not on any standing fluids - monitor and replete lytes prn - chol/fat controlled diet #DVT prophylaxis - Lovenox 40 mg SQ q 24 hours. #Dispo - Full code - tele Visit type - Emergency Visit Emergency Visit: Yes ED Registration Date: 02/15/20 Care time: The patient presented to the Emergency Department on the above date and was hospitalized for further evaluation of their emergent condition. - New Patient This patient is new to me today: Yes Date on this admission: 02/15/20 - Critical Care Critical Care patient: No ATTENDING PHYSICIAN STATEMENT I saw and evaluated the patient. I reviewed the resident's note and discussed the case with the resident. I agree with the resident's findings and plan as documented. SUBJECTIVE: OBJECTIVE: ASSESSMENT AND PLAN:
[2020-02-15 23:25] VITALS: BMI 32.0
[2020-02-16] MEDS ORDERED: ACETAMINOPHEN 1000 MG/100 ML VIAL (NON FORMULARY) IVPB ONE (01:15)
[2020-02-16] MEDS: LEVOTHYROXINE NA 75 MCG TABLET (FP) PO SCH (06:32)
[2020-02-16 06:50] LABS: BASO % 0.3 % (0-2.0); EOS % 2.9 % (0-4.5); HEMATOCRIT 40.6 % (32.4-45.2); HEMOGLOBIN 13.7 GM/dL (10.7-15.3); LYMPH % 43.5 % (8-40); MCH 31.1 pg (25.7-33.7); MCHC 33.6 g/dl (32.0-36.0); MEAN CELL VOLUME 92.5 fl (80-96); MEAN PLT VOLUME 7.9 fl (7.5-11.1); MONO % 6.2 % (3.8-10.2); NEUT % 47.1 % (42.8-82.8); PLATELET COUNT 282 K/MM3 (134-434); RBC 4.39 M/mm3 (3.60-5.2); RDW 13.2 % (11.6-15.6); WHITE BLOOD COUNT 5.8 K/mm3 (4.0-10.0)
[2020-02-16 07:08] LABS: ALBUMIN 3.8 g/dl (3.4-5.0); BILIRUBIN,TOTAL 1.2 mg/dL (0.2-1); CALCIUM 8.8 mg/dL (8.5-10.1); CREATININE 0.7 mg/dL (0.55-1.3); MAGNESIUM 2.5 mg/dL (1.8-2.4); POTASSIUM 3.7 mmol/L (3.5-5.1); TOT PROT 7.5 g/dl (6.4-8.2)
--- NOTE | 2020-02-16 09:26 | CONSULT ---
Consult - text type - Consultation Consultation Note: Neurology HISTORY OF PRESENT ILLNESS: This is a 35 year old finnish speaking welsh woman with a PMHx of Hypothyroidism (on synthroid), GERD, and Asthma who presented with acute onset of rt sided headache, accompanied by a right sided facial droop which is chronic, and an acute RUE and RLE weakness since 5:30pm on day of admission. Patient stated that around 5:30 pm on day of admission she was talking with her daughter when she developed acute onset right sided headache. She then went to use the bathroom, fell and hit the right side of her head. Stated she has had a headache since then and had an episode of NBNB vomiting. Admited it was associated with photophobia, slight dizziness, and tinnitus, and flashing lights. Stated she has been stressed out lately and has not been sleeping much in the past couple days. 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 Denied chance of being . Patient denied chest pain, shortness of breath, palpitations, fever, chills, nausea, diarrhea, constipation, dysuria, frequency, urgency, melena, hematochezia or hematuria. No sick contacts or recent travels. CT of cervical spine performed and showed C5-C6 minimal disc osteophyte complex w/o cord or nerve root impingement. Head Ct demonstrated no acute intracranial pathology and nondisplaced fracture line in R. zygomatic arch. Carotid U/S was normal. Echo performed and showed L. ventricular size, thickness and function are normal. MRI of Brain showed no infarct identified. patient was relieved by this and was inquiring whether she would be able to go home today. Her headaches are significantly better aand she may benefit from Fioricet which can be taken up to 3 times a day, but not more than 3 days per week. Topamax 25 mg up to twice a day can be continued. Headache triggers discussed, headache prevention discussed. PAST SURGICAL HISTORY: partial thyroidectomy and Social History: Smoking:denies Alcohol:denies Drugs: denies REVIEW OF SYSTEMS negative except above Allergies ciprofloxacin [From Cipro] Allergy (Verified 02/14/20 22:44) ibuprofen Allergy (Verified 02/14/20 22:44) HOME MEDICATIONS: Home Medications Medication Instructions Recorded Levothyroxine [Synthroid -] 75 mcg PO DAILY 02/15/20 Active Medications Aspirin (Asa -) 81 mg PO DAILY [facility] Last Admin: 02/15/20 12:22 Dose: 81 mg Documented by: Enoxaparin Sodium (Lovenox -) 40 mg SQ DAILY [facility] Last Admin: 02/15/20 12:22 Dose: 40 mg Documented by: Levothyroxine Sodium (Synthroid -) 75 mcg PO DAILY@0700 [facility] Last Admin: 02/16/20 06:32 Dose: 75 mcg Documented by: [id number] Ethyl Esters (Lovaza -) 2 gm PO BID [facility] Last Admin: 02/15/20 23:31 Dose: 2 gm Documented by: Topiramate (Topamax -) 25 mg PO DAILY [facility] Last Admin: 02/15/20 12:22 Dose: 25 mg Documented by: Verapamil HCl (Verelan Sr Capsule) 120 mg PO DAILY [facility] Last Admin: 02/15/20 12:53 Dose: 120 mg Documented by: PHYSICAL EXAMINATION Vital Signs Period Temp Pulse Resp BP Sys/Kelly Pulse Ox Last 24 Hr 97.8 F-98.5 F 55-72 16-20 98-132/58-85 94-100 GENERAL: Awake, tired, and fully oriented, in no acute distress. HEAD: Normal with no signs of trauma. Facial droop slightly, decreased sensation on right side, uneven smile favoring the left side, unable to close eye on right fully tightly EYES: Pupils equal, round and reactive to light, extraocular movements intact, sclera anicteric, conjunctiva clear. No lid lag. EARS, NOSE, THROAT: Ears normal, nares patent, oropharynx clear without exudates. Moist mucous membranes. LUNGS: Breath sounds equal, clear to auscultation bilaterally. No wheezes, and no crackles. No accessory muscle use. HEART: Regular rate and rhythm, normal S1 and S2 without murmur, rub or gallop. ABDOMEN: Soft, slightly tender to palpation in Rt epigastrium, not distended. LOWER EXTREMITIES: 2+ pulses, warm, well-perfused. No peripheral edema. NEUROLOGICAL: Cranial nerves II-XII intact. mmoves all extremities equally, sensory intact, finger to nose normal PSYCHIATRIC: Cooperative. Good eye contact. Appropriate mood and affect. CBCD WBC 5.8 K/mm3 (4.0-10.0) 02/16/20 05:20 RBC 4.39 M/mm3 (3.60-5.2) 02/16/20 05:20 Hgb 13.7 GM/dL (10.7-15.3) 02/16/20 05:20 Hct 40.6 % (32.4-45.2) 02/16/20 05:20 MCV 92.5 fl (80-96) 02/16/20 05:20 MCHC 33.6 g/dl (32.0-36.0) 02/16/20 05:20 RDW 13.2 % (11.6-15.6) 02/16/20 05:20 Plt Count 282 K/MM3 (134-434) 02/16/20 05:20 MPV 7.9 fl (7.5-11.1) 02/16/20 05:20 CMP Sodium 138 mmol/L (136-145) 02/16/20 05:20 Potassium 3.7 mmol/L (3.5-5.1) 02/16/20 05:20 Chloride 107 mmol/L (98-107) 02/16/20 05:20 Carbon Dioxide 24 mmol/L (21-32) 02/16/20 05:20 Anion Gap 7 MMOL/L (8-16) L 02/16/20 05:20 BUN 9.0 mg/dL (7-18) 02/16/20 05:20 Creatinine 0.7 mg/dL (0.55-1.3) 02/16/20 05:20 Random Glucose 86 mg/dL (74-106) 02/16/20 05:20 Calcium 8.8 mg/dL (8.5-10.1) 02/16/20 05:20 Total Bilirubin 1.2 mg/dL (0.2-1) H 02/16/20 05:20 AST 146 U/L (15-37) H 02/16/20 05:20 ALT 294 U/L (13-61) H 02/16/20 05:20 Alkaline Phosphatase 90 U/L (45-117) 02/16/20 05:20 Total Protein 7.5 g/dl (6.4-8.2) 02/16/20 05:20 Albumin 3.8 g/dl (3.4-5.0) 02/16/20 05:20 CARDIAC ENZYMES Creatine Kinase 188 U/L (26-192) 02/14/20 23:00 Troponin I < 0.02 ng/ml (0.00-0.05) 02/14/20 23:00 ASSESSMENT/PLAN: This is a 35 year old finnish speaking welsh woman with a PMHx of Hypothyroidism (on synthroid), GERD, and Asthma who presented with acute onset of rt sided headache, accompanied by a right sided facial droop which is chronic, and an acute RUE and RLE weakness since 5:30pm on day of admission. Patient stated that around 5:30 pm on day of admission she was talking with her daughter when she developed acute onset right sided headache. She then went to use the bathroom, fell and hit the right side of her head. Stated she has had a headache since then and had an episode of NBNB vomiting. Admited it was associated with photophobia, slight dizziness, and tinnitus, and flashing lights. Stated she has been stressed out lately and has not been sleeping much in the past couple days. 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 Denied chance of being . Patient denied chest pain, shortness of breath, palpitations, fever, chills, nausea, diarrhea, constipation, dysuria, frequency, urgency, melena, hematochezia or hematuria. No sick contacts or recent travels. CT of cervical spine performed and showed C5-C6 minimal disc osteophyte complex w/o cord or nerve root impingement. Head Ct demonstrated no acute intracranial pathology and nondisplaced fracture line in R. zygomatic arch. Carotid U/S was normal. Echo performed and showed L. ventricular size, thickness and function are normal. MRI of Brain showed no infarct identified. patient was relieved by this and was inquiring whether she would be able to go home today. Her headaches are significantly better aand she may benefit from Fioricet which can be taken up to 3 times a day, but not more than 3 days per week. Topamax 25 mg up to twice a day can be continued. Headache triggers discussed, headache prevention discussed.
[2020-02-16] MEDS ORDERED: PT OWN MED DRAWER 7, Y5N ONE ×3 (09:31→13:17)
[2020-02-16] MEDS: OMEGA-3 ACID ETHYL ESTERS (FATTY-ACIDS) 1 GM CAPSULE (FP) PO SCH (10:15)
[2020-02-16] MEDS: VERAPAMIL HCL 120 MG CAP SUSTAINED RELEASE PO SCH (10:15)
[2020-02-16] MEDS: ASPIRIN 81 MG CHEWABLE TABLETS PO SCH (10:15)
[2020-02-16] MEDS: ENOXAPARIN NA (PORCINE) 40 MG/0.4 ML DISP.SYRIN SQ SCH (10:15)
--- NOTE | 2020-02-16 12:46 | PN ---
Progress Note, SOUVENIR ASSEMBLER - Note Progress Note: 35 yo Patient seen at bedside by SOUVENIR ASSEMBLER as a follow up to clinical bedside evaluat ion with recommendations for regular solids with thin liquids as tolerated. Patient was evaluated in the ED. Another consultation was ordered this a.m. SOUVENIR ASSEMBLER observed pt during lunch eating independently without s/s of of dysphagia and / or aspiration. Continue po intake of regular solids and thin liquids as tolerated. Observed dietary restrictions as described by most recent nutrition report. Results given verbally to charge machine operator and PCP via chart. No further speech intervention needed unless there is a change in medical status.
[2020-02-16] MEDS: TOPIRAMATE 25 MG TABLET PO SCH (13:42)
[2020-02-16 13:45] VITALS: BP 110/58; PULSE 72; TEMP 98.2
--- NOTE | 2020-02-16 16:03 | DS ---
Physical Exam: SUBJECTIVE: Patient seen and examined. Patient reported improvement of symptoms. OBJECTIVE: Vital Signs Temperature 98.2 F 02/16/20 13:44 Pulse Rate 72 02/16/20 13:44 Respiratory Rate 18 02/16/20 13:44 Blood Pressure 110/58 L 02/16/20 13:44 O2 Sat by Pulse Oximetry (%) 97 02/16/20 13:44 PHYSICAL EXAM GENERAL: The patient is awake, alert, and fully oriented, in no acute distress. NECK: full range of motion, supple. LUNGS: Breath sounds equal, clear to auscultation bilaterally HEART: Regular rate and rhythm, S1, S2 ABDOMEN: Soft, nontender, nondistended, normoactive bowel sounds EXTREMITIES: 2+ pulses, warm, well-perfused, no edema. NEUROLOGICAL: minimal Right facial droop (improved), the rest of Cranial nerves II-XII intact. sensation decreased and motor weakness 4/5 on RUE/RLE (improved from yesterday) PSYCH: Normal mood, normal affect. SKIN: Warm, dry, normal turgor, no rashes or lesions noted LABS Laboratory Results - last 24 hr 02/15/20 02/16/20 02/16/20 04:33 05:20 05:20 WBC 5.8 RBC 4.39 Hgb 13.7 Hct 40.6 MCV 92.5 MCH 31.1 MCHC 33.6 RDW 13.2 Plt Count 282 MPV 7.9 Absolute Neuts (auto) 2.7 Neutrophils % 47.1 Lymphocytes % 43.5 H Monocytes % 6.2 Eosinophils % 2.9 Basophils % 0.3 Nucleated RBC % 0 Sodium Potassium Chloride Carbon Dioxide Anion Gap BUN Creatinine Est GFR (CKD-EPI)AfAm Est GFR (CKD-EPI)NonAf Random Glucose Calcium Magnesium Total Bilirubin AST ALT Alkaline Phosphatase Total Protein Albumin Acetaminophen < 2.0 COVID-19 ([facility]) Not detected 02/16/20 05:20 WBC RBC Hgb Hct MCV MCH MCHC RDW Plt Count MPV Absolute Neuts (auto) Neutrophils % Lymphocytes % Monocytes % Eosinophils % Basophils % Nucleated RBC % Sodium 138 Potassium 3.7 Chloride 107 Carbon Dioxide 24 Anion Gap 7 L BUN 9.0 Creatinine 0.7 Est GFR (CKD-EPI)AfAm 131.94 Est GFR (CKD-EPI)NonAf 113.84 Random Glucose 86 Calcium 8.8 Magnesium 2.5 H Total Bilirubin 1.2 H AST 146 H ALT 294 H Alkaline Phosphatase 90 Total Protein 7.5 Albumin 3.8 Acetaminophen COVID-19 ([facility]) HOSPITAL COURSE: Date of Admission:02/15/20 Date of Discharge: 02/16/20 Patient is a 35 year old portuguese speaking afghan woman with a PMHx of Hypothyroidism (on synthroid), GERD, and Asthma who presents with acute onset of rt sided headache, accompanied by a right sided facial droop which is chronic, and an acute RUE and RLE weakness for 1 day. Echo, carotid doppler, head CT and brain MRI were done and were unremarkable. Patient was evaluated by neuro and recommended Topamax for migraine ppx. Patient was also noted to have transaminitis, but showed improvement from her recent blood work that was done from outpatient a few weeks ago. RUQ US revealed fatty liver and labs showed hyperlipidemia. Patient was discharged with instructions to follow up with PCP and neurology. Minutes to complete discharge: 38 Discharge Summary Problems reviewed: Yes Reason For Visit: HEADACHE,FACIAL DROOP,WEAKNESS Current Active Problems Elevated LFTs (Acute) Facial droop (Acute) Headache (Acute) Weakness (Acute) Condition: Stable - Instructions Diet, Activity, Other Instructions: Your visit You were admitted to the hospital because you had right arm and leg weakness and a headache. CT scan and MRI of your brain was normal. An ultrasound of your heart was also normal. You were evaluated by the neurologist. Your symptoms were likely caused by the migraine. Please take the following medication as prescribed below. It is also important to avoid stress, flashing lights, drinking alcohol, skipping meals which are common triggers for a migraine. Your liver function was also noted to be elevated. But it is improving from your previous numbers. You had an ultrasound which showed a fatty liver, or there's fat buildup in the liver. This can be caused by being overweight and having high cholesterol. Please follow up with your primary care doctor. Medications Please take the following medications as prescribed: 1. Topamax 25mg once a day. You may increase the dose to twice a day as needed for migraine prevention. 2. You may take Tylenol as needed for headache. 3. Metformin 500mg once a day. Follow up Please follow up with your primary care doctor in 1 week. Please follow up with the neurologist (Dr. Tejeda) in 1-2 weeks. For outpatient physical therapy, please call [phone] to schedule an appointment. Additional info Please call 911 or go to the ED if with worsening fevers, chills, headache, dizziness, chest pain, shortness of breath, belly pain, or any new concerns noted. Referrals: Sam Hdz DO [Staff Physician] - Jacoby Tejeda MD [Staff Physician] - Louise Bird DO [Primary Care Provider] - Disposition: HOME - Home Medications Comprehensive Discharge Medication List: Ambulatory Orders Levothyroxine [Synthroid -] 75 mcg PO DAILY 02/15/20 Topiramate [Topamax -] 25 mg PO DAILY #30 tablet 02/16/20 metFORMIN HCL [Metformin HCl] 500 mg PO DAILY #30 tablet 02/16/20 This patient is new to me today: No Emergency Visit: Yes ED Registration Date: 02/15/20 Care time: The patient presented to the Emergency Department on the above date and was hospitalized for further evaluation of their emergent condition. Critical Care patient: No - Discharge Referral Referred to [facility] No ATTENDING PHYSICIAN STATEMENT I saw and evaluated the patient. I reviewed the resident's note and discussed the case with the resident. I agree with the resident's findings and plan as documented. SUBJECTIVE: OBJECTIVE: ASSESSMENT AND PLAN:
--- NOTE | 2020-02-19 18:10 | PN ---
Teaching Attending Note Name of Resident: Rani Deluca ATTENDING PHYSICIAN STATEMENT I saw and evaluated the patient. I reviewed the resident's note and discussed the case with the resident. I agree with the resident's findings and plan as documented. SUBJECTIVE: Patient seen and examined at bedside, admitted for complex migraine, CVA ruled out w/ negative MRI. Still with some decreased R facial sensation/slight flattening, and R arm decreased sensation however improved from yesterday, cleared by Neurology for outpatient follow up and treatment for migraine disorder. VSS. OBJECTIVE: GENERAL: The patient is awake, alert, and fully oriented, in no acute distress. HEENT NC/AT, faint flattening of R nasolabial fold, mildly decreased sensation R side of face LUNGS: Breath sounds equal, clear to auscultation bilaterally HEART: Regular rate and rhythm, S1, S2 ABDOMEN: Soft, nontender, nondistended, normoactive bowel sounds EXTREMITIES: 2+ pulses, warm, well-perfused, no edema. NEUROLOGICAL: minimal Right facial droop (improved), the rest of Cranial nerves II-XII intact. sensation decreased and motor weakness 4/5 on RUE/RLE (improved from yesterday) PSYCH: Normal mood, normal affect. SKIN: Warm, dry, normal turgor, no rashes or lesions noted Laboratory Tests 02/14/20 02/14/20 02/14/20 23:00 23:00 23:00 WBC 7.0 RBC 4.61 Hgb 14.3 Hct 43.3 MCV 94.0 MCH 31.1 MCHC 33.1 RDW 13.5 Plt Count 281 MPV 8.3 Absolute Neuts (auto) 4.4 Neutrophils % 63.3 D Lymphocytes % 28.8 D Monocytes % 5.9 Eosinophils % 1.6 Basophils % 0.4 Nucleated RBC % 0 PT with INR 11.50 INR 0.97 PTT (Actin FS) 30.5 Sodium Potassium Chloride Carbon Dioxide Anion Gap BUN Creatinine Est GFR (CKD-EPI)AfAm Est GFR (CKD-EPI)NonAf Random Glucose Hemoglobin A1c % Calcium Phosphorus Magnesium Total Bilirubin AST ALT Alkaline Phosphatase Creatine Kinase Creatine Kinase Index CK-MB (CK-2) Troponin I Total Protein Albumin Triglycerides Cholesterol Total LDL Cholesterol HDL Cholesterol TSH Free T4 Serum , Qual Negative Urine Color Urine Appearance Urine pH Ur Specific [place] Urine Protein Urine Glucose (UA) Urine Ketones Urine Blood Urine Nitrite Urine Bilirubin Urine Urobilinogen Ur Leukocyte Esterase Urine WBC (Auto) Urine RBC (Auto) Urine Casts (Auto) U Epithel Cells (Auto) Urine Bacteria (Auto) Urine HCG, Qual Acetaminophen COVID-19 ([facility]) Hep A IgM Ab Confirm Hep Bs Antigen Hep B Core IgM Ab Hepatitis C Ab (EIA) Blood Type Antibody Screen 02/14/20 02/14/20 02/15/20 23:00 23:00 02:16 WBC RBC Hgb Hct MCV MCH MCHC RDW Plt Count MPV Absolute Neuts (auto) Neutrophils % Lymphocytes % Monocytes % Eosinophils % Basophils % Nucleated RBC % PT with INR INR PTT (Actin FS) Sodium 138 Potassium 3.9 Chloride 107 Carbon Dioxide 25 Anion Gap 6 L BUN 7.9 Creatinine 0.7 Est GFR (CKD-EPI)AfAm 131.94 Est GFR (CKD-EPI)NonAf 113.84 Random Glucose 100 Hemoglobin A1c % Calcium 8.6 Phosphorus Magnesium Total Bilirubin 1.1 H AST 145 H ALT 293 H Alkaline Phosphatase 92 Creatine Kinase 188 Creatine Kinase Index 0.5 CK-MB (CK-2) 1.0 Troponin I < 0.02 Total Protein 7.9 Albumin 4.0 Triglycerides 232 H Cholesterol 269 H Total LDL Cholesterol 183 H HDL Cholesterol 47 TSH Free T4 Serum , Qual Urine Color Urine Appearance Urine pH Ur Specific [place] Urine Protein Urine Glucose (UA) Urine Ketones Urine Blood Urine Nitrite Urine Bilirubin Urine Urobilinogen Ur Leukocyte Esterase Urine WBC (Auto) Urine RBC (Auto) Urine Casts (Auto) U Epithel Cells (Auto) Urine Bacteria (Auto) Urine HCG, Qual Negative Acetaminophen COVID-19 ([facility]) Hep A IgM Ab Confirm Hep Bs Antigen Hep B Core IgM Ab Hepatitis C Ab (EIA) Blood Type O POSITIVE Antibody Screen Negative 02/15/20 02/15/20 02/15/20 02:16 04:33 05:49 WBC 6.5 RBC 4.22 Hgb 13.0 Hct 39.4 MCV 93.4 MCH 30.7 MCHC 32.9 RDW 13.3 Plt Count 275 MPV 7.8 Absolute Neuts (auto) 3.0 Neutrophils % 46.0 D Lymphocytes % 45.7 H D Monocytes % 5.7 Eosinophils % 2.2 Basophils % 0.4 Nucleated RBC % 0 PT with INR INR PTT (Actin FS) Sodium Potassium Chloride Carbon Dioxide Anion Gap BUN Creatinine Est GFR (CKD-EPI)AfAm Est GFR (CKD-EPI)NonAf Random Glucose Hemoglobin A1c % Calcium Phosphorus Magnesium Total Bilirubin AST ALT Alkaline Phosphatase Creatine Kinase Creatine Kinase Index CK-MB (CK-2) Troponin I Total Protein Albumin Triglycerides Cholesterol Total LDL Cholesterol HDL Cholesterol TSH Free T4 Serum , Qual Urine Color Yellow Urine Appearance Clear Urine pH 5.5 Ur Specific [place] 1.034 Urine Protein Negative Urine Glucose (UA) Negative Urine Ketones Negative Urine Blood 3+ H Urine Nitrite Negative Urine Bilirubin Negative Urine Urobilinogen 0.2 Ur Leukocyte Esterase Negative Urine WBC (Auto) 7 Urine RBC (Auto) 436 Urine Casts (Auto) 1 U Epithel Cells (Auto) 11 Urine Bacteria (Auto) 34 Urine HCG, Qual Acetaminophen COVID-19 ([facility]) Not detected Hep A IgM Ab Confirm Hep Bs Antigen Hep B Core IgM Ab Hepatitis C Ab (EIA) Blood Type Antibody Screen 02/15/20 02/15/20 02/16/20 05:49 05:49 05:20 WBC RBC Hgb Hct MCV MCH MCHC RDW Plt Count MPV Absolute Neuts (auto) Neutrophils % Lymphocytes % Monocytes % Eosinophils % Basophils % Nucleated RBC % PT with INR INR PTT (Actin FS) Sodium 140 Potassium 3.7 Chloride 106 Carbon Dioxide 21 Anion Gap 12 BUN 5.6 L Creatinine 0.6 Est GFR (CKD-EPI)AfAm 138.80 Est GFR (CKD-EPI)NonAf 119.76 Random Glucose 94 Hemoglobin A1c % 5.8 Calcium 7.8 L Phosphorus 3.4 Magnesium 2.1 Total Bilirubin 1.1 H AST 120 H ALT 252 H Alkaline Phosphatase 78 Creatine Kinase Creatine Kinase Index CK-MB (CK-2) Troponin I Total Protein 6.9 Albumin 3.6 Triglycerides Cholesterol Total LDL Cholesterol HDL Cholesterol TSH 5.73 H Free T4 0.93 Serum , Qual Urine Color Urine Appearance Urine pH Ur Specific [place] Urine Protein Urine Glucose (UA) Urine Ketones Urine Blood Urine Nitrite Urine Bilirubin Urine Urobilinogen Ur Leukocyte Esterase Urine WBC (Auto) Urine RBC (Auto) Urine Casts (Auto) U Epithel Cells (Auto) Urine Bacteria (Auto) Urine HCG, Qual Acetaminophen < 2.0 COVID-19 ([facility]) Hep A IgM Ab Confirm Hep Bs Antigen Hep B Core IgM Ab Hepatitis C Ab (EIA) Blood Type Antibody Screen 02/16/20 02/16/20 02/16/20 05:20 05:20 05:20 WBC 5.8 RBC 4.39 Hgb 13.7 Hct 40.6 MCV 92.5 MCH 31.1 MCHC 33.6 RDW 13.2 Plt Count 282 MPV 7.9 Absolute Neuts (auto) 2.7 Neutrophils % 47.1 Lymphocytes % 43.5 H Monocytes % 6.2 Eosinophils % 2.9 Basophils % 0.3 Nucleated RBC % 0 PT with INR INR PTT (Actin FS) Sodium 138 Potassium 3.7 Chloride 107 Carbon Dioxide 24 Anion Gap 7 L BUN 9.0 Creatinine 0.7 Est GFR (CKD-EPI)AfAm 131.94 Est GFR (CKD-EPI)NonAf 113.84 Random Glucose 86 Hemoglobin A1c % Calcium 8.8 Phosphorus Magnesium 2.5 H Total Bilirubin 1.2 H AST 146 H ALT 294 H Alkaline Phosphatase 90 Creatine Kinase Creatine Kinase Index CK-MB (CK-2) Troponin I Total Protein 7.5 Albumin 3.8 Triglycerides Cholesterol Total LDL Cholesterol HDL Cholesterol TSH Free T4 Serum , Qual Urine Color Urine Appearance Urine pH Ur Specific [place] Urine Protein Urine Glucose (UA) Urine Ketones Urine Blood Urine Nitrite Urine Bilirubin Urine Urobilinogen Ur Leukocyte Esterase Urine WBC (Auto) Urine RBC (Auto) Urine Casts (Auto) U Epithel Cells (Auto) Urine Bacteria (Auto) Urine HCG, Qual Acetaminophen COVID-19 ([facility]) Hep A IgM Ab Confirm Negative Hep Bs Antigen Negative Hep B Core IgM Ab Negative Hepatitis C Ab (EIA) <0.1 Blood Type Antibody Screen Home Medications Medication Instructions Recorded Levothyroxine [Synthroid -] 75 mcg PO DAILY 02/15/20 Topiramate [Topamax -] 25 mg PO DAILY #30 tablet 02/16/20 metFORMIN HCL [Metformin HCl] 500 mg PO DAILY #30 tablet 02/16/20 ASSESSMENT AND PLAN: 35 F Complex migraine disorder Hypothyroidism Obesity T2Dm CVA ruled out Plan: Topamax for migraine d/o MRI negative for CVA, sx slightly improving day to day COnt. Synthroid COnt. Metformin Cleared by Neurology for outpatient follow up Telemetry unremarkable DC home with PMD/neurology/OP PT follow up
== END 2020-02-16 16:09 | disposition home or self-care (01) ==
LOC: JER 22:18 → INTOOBSV 02-15 01:42 → JERBED 02-15 01:42 → UNDOADMOB 02-15 01:42 → JERBED 02-15 10:41 → J4W 02-15 22:26
PROVIDERS: ADMIT Internal Medicine
PROC: 3E0337Z Introduction of Electrolytic and Water Balance Substance into Peripheral Vein, Percutaneous Approach (ICD-10-PCS; principal; 2020-02-15)
PROC: 3E033NZ Introduction of Analgesics, Hypnotics, Sedatives into Peripheral Vein, Percutaneous Approach (ICD-10-PCS; 2020-02-15)
PROC: 3E033GC Introduction of Other Therapeutic Substance into Peripheral Vein, Percutaneous Approach (ICD-10-PCS; 2020-02-15)
DX: G43.909 Migraine, unspecified, not intractable, without status migrainosus (principal); K21.9 Gastro-esophageal reflux disease without esophagitis; J45.909 Unspecified asthma, uncomplicated; E03.9 Hypothyroidism, unspecified; R94.5 Abnormal results of liver function studies; Z91.013 Allergy to seafood; Z91.018 Allergy to other foods; Z88.8 Allergy status to other drugs, medicaments and biological substances; R53.1 Weakness; Z29.9 Encounter for prophylactic measures, unspecified; E66.8 Other obesity; Z68.32 Body mass index [BMI] 32.0-32.9, adult
CPT/HCPCS: 36415; 70450-TC; 70486-TC; 70551-TC; 71045-TC-FY; 72125-TC; 76705-TC; 80053; 80061; 80074; 80307; 81003; 82550; 82553; 83036; 83721; 83735; 84100; 84439; 84443; 84484; 84703; 85025; 85610; 85730; 86850; 86900; 86901; 87497; 87799; 93005; 93010; 93306-TC; 93880-TC; 96372; 96374; 96375; 97116-GP; 97161-GP; 99285-25; G0378; J0131; U0003